=== PATIENT | male | born 1975 | race Caucasian/White ===

== ENCOUNTER → 2024-01-11 | Outpatient (CLI) | payer OTHER, SELFPAY ==
[2024-01-11 09:55] LABS: Absolute Lymphocyte Count 1.53 X10^3/uL (0.83-4.51); Absolute Neutrophil Count 3.9 X10^3/uL (2.0-7.7); Basophil# 0.04 X10^3/uL; Basophil% 0.6 % (0-1); Eosinophil# 0.38 X10^3/uL; Eosinophils% 5.7 % (0-5); Hemoglobin 14.5 g/dL (13.0-16.5); Lymphocyte # 1.53 X10^3/ul (0.83-4.51); Lymphocyte % 23.1 % (19-41); Mean Corp Hgb Conc 31.5 g/dL (32-36); Mean Corpuscular Hgb 27.5 pg (27.0-32.0); Mean Corpuscular Volume 87.1 fL (80-94); Mean Platelet Vol. 10.5 fl (6.2-12.0); Monocyte# 0.74 X10^3/uL; Monocyte% 11.2 % (0-10); NRBC Flagged by Analyzer 0 % (0-5); Neutrophil # 3.91 X10^3/uL (2.7-7.7); Neutrophil % 59.2 % (47-70); Platelet Count 314 K/mm3 (150-450); RBC Distribution Width CV 14.2 % (11.6-14.6); RBC Distribution Width SD 45.5 fl (35.1-43.9); Red Blood Count 5.28 M/mm3 (4.6-6.2); White Blood Count 6.6 K/mm3 (4.4-11.0)
[2024-01-11 10:30] LABS: ALB/GLOB Ratio 0.9 RATIO (0.9-2.4); AST(SGOT) 16 U/L (15-37); Alanine Aminotransfer ALT/SGPT 24 U/L (16-61); Albumin, Serum 3.5 g/dL (3.2-5.0); Alkaline Phosphatase 97 U/L (45-117); Anion Gap 4 (5-15); BUN 18 mg/dL (7-18); BUN/Creat Ratio 15.4 RATIO (10-20); Calcium,Total 9.2 mg/dL (8.5-10.1); Chloride 106 mmol/L (98-107); Cholesterol 133 mg/dL (200); Creatinine, Serum 1.17 mg/dL (0.70-1.30); EST Glomerular Filtration Rate 71 mL/min (>60); Est Glom Filt Rate - Afr Amer 86 mL/min (>60); Globulin 3.9 g/dL (2.2-4.2); Glucose 92 mg/dL (74-106); High Density Lipoprotein 42 mg/dL; Potassium 4.4 mmol/L (3.5-5.1); Protein, Total 7.4 g/dL (6.4-8.2); Sodium Level 138 mmol/L (136-145); Triglycerides 111 mg/dL; Very Low Density Lipoprotein 22 mg/dL (5-40)
[2024-01-11 10:49] LABS: Hemoglobin A1c 5.6 % (3.8-5.6)
== END | disposition home or self-care (01) ==
LOC: LAB 09:08
PROVIDERS: Referring Provider Registered Nurse; Visit Provider Registered Nurse
DX: Z00.00 Encounter for general adult medical examination without abnormal findings (principal); Z13.1 Encounter for screening for diabetes mellitus; G47.33 Obstructive sleep apnea (adult) (pediatric); E66.9 Obesity, unspecified; R53.83 Other fatigue
CPT/HCPCS: 36415; 80053; 80061; 83036; 85025

== ENCOUNTER 2024-04-12 06:46 | Emergency (ER) | payer OTHER, SELFPAY ==
[2024-04-12 06:47] VITALS: BP 167/87; PULSE 99; RESP 18; TEMP 37; O2SAT 96; BMI 44.4
[2024-04-12 06:54] VITALS: BP 146/77; PULSE 84; RESP 18; O2SAT 95
[2024-04-12] MEDS: Ibuprofen 600 MG Tablet PO (07:24)
== END 2024-04-12 10:02 | disposition home or self-care (01) ==
PROVIDERS: Emergency Provider Emergency Medicine; PCP Registered Nurse; Visit Provider Emergency Medicine
DX: S63.501A Unspecified sprain of right wrist, initial encounter (principal); S63.502A Unspecified sprain of left wrist, initial encounter; I10 Essential (primary) hypertension; E66.9 Obesity, unspecified; W19.XXXA Unspecified fall, initial encounter
CPT/HCPCS: 73090; 73110; 99283

== ENCOUNTER → 2025-02-11 | Outpatient (CLI) | payer OTHER, SELFPAY ==
--- OUTSIDE RECORDS SUMMARY | 2025-02-11 07:32 | XMS RPT_ITS | CCD ---
Author Organization [facility] [place] [facility] Care Team Providers Care [employer] Name Role Phone ELIZABETH BOWERS, PAU Primary Care Physician CALLY WOLF-MARIA ESTHER, ROXANN Primary Care Physician CALLY BOWERS, ROXANN Primary Care ADALBERTO Mast DO Attending Unavailable CALLY WOLF-RADIO EQUIPMENT INSTALLER, ROXANN Attending Eron SABILLON APRN-RADIO EQUIPMENT INSTALLER, KATIANA Primary Care Un available CALLY BOWERS, ROXANN Attending Eron ALAMO APRN-MARIA ESTHER, [facility] Primary Care Eron Sabillon BASEBALL INSPECTOR-C, [facility] Provider Assessment, Health Risk Attending Provider Unava ilable Assessment, Health Risk Referring Provider Unava ilable Naman Cordoba MD, Chi Attending Provider Unavailable Jacinda BASEBALL INSPECTOR, [facility] Unavailabl Rosalino Ann Attending Unavailable Adalid OLS, Naman Chi Attending Unavailable Jacinda SOTO, [facility] UnavailDat Martinez Attending Unavailable Jacinda BASEBALL INSPECTOR, Silas Referring Unavailbutch Sabillon NP, [facility] Unavailbutch Sabillon BASEBALL INSPECTOR, [facility] Unavailbutch Sabillon BASEBALL INSPECTOR, Silas Referring Unavailabl e Giovanni Muñoz Attending Unavailable Adalid OLS, Naman Chi Referring Unavailable KARY ROGERS Primary Care Unavailable Adalid OLS, Naman Chi Attending Unavailable Adalid OLS, Naman Chi Attending Unavailable Adalid OLS, Naman Chi Referring Unavailable KARY ROGERS Primary Care Unavailable Adalid OLS, Naman Chi Attending Unavailable Jacinda SOTO, [facility] Unavailabl e Adalid OLS, Naman Chi Attending Unavailable Adalid OLS, Naman Chi Referring Unavailable KARY ROGERS Primary Care Unavailable Adalid OLS, Naman Chi Attending Unavailable Adalid, Naman Chi Referring Unavailable Jacinda BASEBALL INSPECTOR, [facility] Unavailabl e Adalid OLS, Naman Chi Attending Unavailable Adalid OLS, Naman Chi Referring Unavailable Jacinda BASEBALL INSPECTOR, [facility] Unavailabl e Adalid OLS, Naman Chi Attending Unavailable Adalid OLS, Naman Chi Referring Unavailable Jacinda BASEBALL INSPECTOR, [facility] Unavailabl e Adalid OLS, Naman Chi Attending Unavailable KARY ROGERS Primary [facility] Unavailable Adalid OLS, Naman Chi Attending Unavailable Adalid, Naman Chi Referring Unavailable Jacinda BASEBALL INSPECTOR, [facility] Unavailabl e Adalid OLS, Naman Chi Attending Unavailable Adalid OLS, Naman Chi Referring Unavailable Jacinda BASEBALL INSPECTOR, [facility] Unavailabl e Adalid OLS, Naman Chi Attending Unavailable Adalid OLS, Anman Chi Referring Unavailable Jacinda BASEBALL INSPECTOR, [facility] Unavailabl e Assessment, Health Risk Referring Unavaila ble Assessment, Health Risk Attending Unavaila ble Jacinda BASEBALL INSPECTOR, [facility] Unavailabl e Allergies Allergy Classification Reported Allergen(s) Allergy Type Date of Onset Reaction(s) Facility (6 sources) Benzoyl Peroxide; Translations: [benzoyl peroxide topical] Drug Allergy Pain (finding), Red color (finding), Swelling (finding) [facility] (1 source) Seasonal allergy; Translations: [SEASONAL ALLERGIES] Propensity to adverse reactions (disorder) 6 [facility] Repository Medications Current Medications Medication Drug Class(es) Dates Sig (Normalized) Sig (Original) Centrum Men's oral tablet (6 sources) Start: 05-14-2020 take 1 tablet by mouth once daily Centrum Men's oral tablet Oral, qDay, 0 Refill(s) Start Date: 05/14/20 Status: Ordered cholecalciferol 0.125 mg oral tablet (1 source) Vitamin D Start: 04-12-2024 take 1 tablet by mouth once daily Cholecalciferol (Vitamin D3) (Vitamin D3) 125 mcg (5,000 unit) tablet Active 5000 U PO DAILY April 12, 2024 1:00am citalopram 20 mg oral tablet (6 sources) Serotonin Reuptake Inhibitor Start: 06-15-2021 End: 02-07-2023 citalopram 20 mg oral tablet Dose : 20 mg = 1 tab(s), Oral, qDay, # 90 tab(s), 3 Refill(s), Pharmacy: [id number], 169.5, cm, 02/12/22 10:20:00 EDT, Height, kg, 02/12/22 10:20:00 EDT, Dosing Weight Start Date: 02/12/22 Stop Date: 02/07/23 Status: Ordered Start: 05-14-2020 End: 05-09-2021 citalopram 40 mg oral tablet Dose : 20 mg = 0.5 tab(s), Oral, qDay, # 45 tab(s), 3 Refill(s), Pharmacy: [id number], 170.2, cm, 05/14/20 11:26:00 EST, Height, kg, 05/14/20 11:26:00 EST, Dosing Weight Start Date: 05/14/20 Stop Date: 05/09/21 Status: Ordered Multivitamin tablet (1 source) Start: 04-12-2024 Multivitamin t ablet Active 1 {tbl} PO DAILY April 12, 2024 1:00am Vitamin D3 (6 sources) Start: 05-14-2020 Vitamin D3 Dos e : 2,000 unit(s) = 1 tab(s), Oral, Daily, 0 Refill(s) Start Date: 05/14/20 Status: Ordered Problems Active Problems Problem Classification Problem Date Documented Da te Episodic/Chronic Administrative/social admission (1 source) Patient encounter status; Translations: [Encounter for pre-employment examination] 07-22-2023 Episodic Anxiety disorders (6 sources) Anxiety 05-14-2020 Chronic E Codes: Fall (1 source) Accidental fall ; Translations: [Unspecified fall, initial encounter] 04-20-2024 Episodic Esophageal disorders (6 sources) Gastroesophageal reflux disease 05-14-2020 Chronic Essential hypertension (1 source) Hypertensive disorder; Translations: [Essential (primary) hypertension] 04-20-2024 Chronic Fluid and electrolyte disorders (3 sources) Hyperkalemia 02-14-2022 Episodic Other bone disease and musculoskeletal deformities (18 sources) Segmental and somatic dysfunction 05-14-2020 Episodic Other screening for suspected conditions (not mental disorders or infectious disease) (1 source) Procedure carried out on subject; Translations: [Encounter for screening, unspecified] Episodic Residual codes; unclassified (6 sources) Obstructive sleep apnea syndrome 08-14-2020 Chronic Sprains and strains (2 sources) Injury of forearm; Translations: [Strain of unspecified muscles, fascia and tendons at forearm level, unspecified arm, initial encounter] 04-20-2024 Episodic Unclassified (5 sources) Patient encounter status 06-15-2021 Past or Other Problems Problem Classification Problem Date Documented Da te Episodic/Chronic Immunizations and screening for infectious disease (2 sources) Encounter for observation for suspected exposure to other biological agents ruled out; Translations: [Encounter for observation for suspected exposure to other biological agents ruled out] Onset: 06-06-2024 Episodic Other non-traumatic joint disorders (1 source) Pain in left wrist; Translations: [Pain in left wrist] Onset: 05-11-2024 Episodic Superficial injury; contusion (4 sources) Right wrist contusion; Translations: [Contusion of right wrist, initial encounter] Onset: 04-27-2024 04-19-2024 Episodic Results Test Name Value Interpretation Reference Range Facility COVID 19 AG RAPID (KANE Foley)on 01-24-2025 SARS-CoV-2 (COVID-19) RNA RENATO+probe Ql (Unsp spec) *Negative results from patients with symptom onset beyond five days should be treated as presumptive and confirmed by a molecular assay if clinically necessary. Negative results should not be used as the sole basis for treatment or for patient management. SARS-CoV-2 Ag Resp Ql IA.rapid *Positive results do not differentiate between SARS-CoV and SARS-CoV-2. If differentiation of the specific SARS virus is desired an additional sample and an additional order is required. SARS-CoV-2 Ag Resp Ql IA.rapid * This test has not been FDA cleared or approved; the test has been authorized by FDA under an Emergency Use Authorization (EAU) for use by laboratories certified under CLIA that meet the requirements to perform moderate, high, or waived complexity tests. SARS-CoV-2 Ag Resp Ql IA.rapid Normal Reference Range: Negative SARS-CoV-2 (COVID 19) Negative RAPID METHOD [employer] COVID19 Ag Card Normal [facility] Comment on above: Performed By: #### M 100.505 #### [facility] [place], [address] COVID-19 virus antigen assay Ordered By: Naman Cordoba on 01-24-2025 SARS-CoV-2 (COVID-19) Ag IA.rapid Ql (Resp) [facility] Absolute lymphocyte countOrd ered By: HEALTH ASSESSMENT on 01-04-2025 Lymphocytes Auto (Unsp spec) [#/Vol] 1.52 10*3/uL 0.83-4.51 [facility] Absolute neutrophil countOrd ered By: HEALTH ASSESSMENT on 01-04-2025 Neutrophils (Bld) [#/Vol] 5.6 10*3/uL 2.0-7.7 [facility] Absolute nucleated red blood cell countOrdered By: HEALTH ASSESSMENT on 01-04-2025 Nucleated RBC (Bld) [#/Vol] 0.00 10*3/uL 0-5 [facility] Anion gap in Serum or Plasma Ordered By: HEALTH ASSESSMENT on 01-04-2025 Anion gap [Moles/Vol] 12 mmol/L 5-15 [facility] BUN/creatinine ratioOrdered By: HEALTH ASSESSMENT on 01-04-2025 Urea nitrogen/Creatinine [Mass ratio] 11.8 mg/mg 10-20 [facility] Bilirubin Test strip Ql (U)O rdered By: HEALTH ASSESSMENT on 01-04-2025 Bilirubin Ql (U) Negative Negative [facility] Bilirubin directOrdered By: HEALTH ASSESSMENT on 01-04-2025 Bilirubin.direct [Mass/Vol] 0.21 mg/dL 0.00-0.30 [facility] Bilirubin, totalOrdered By: HEALTH ASSESSMENT on 01-04-2025 Bilirubin [Mass/Vol] 0.48 mg/dL 0.00-1.30 [facility] Blood band neutrophil count as percentage of total leukocytesOrdered By: HEALTH ASSESSMENT on 01-04-2025 Band form neutrophils/100 WBC (Bld) 69.1 % 47-70 [facility] CBC, Employeeon 01-04-2025 Absolute Lymph 1.52 X10 3/uL Normal 0.83-4.51 [facility] Comment on above: Performed By: #### M 100.505 #### [facility] [address] [place], [place], [id number] Absolute Neut 5.6 X10 3/uL Normal 2.0-7.7 [facility] Comment on above: Performed By: #### M [id number] #### [facility] [address] [place], [address] Basophils/100 WBC (Bld) 0.5 % Normal 0-1 [facility] Comment on above: Performed By: #### M [id number] #### [facility] [address] [place], [address] Eosinophils/100 WBC (Bld) 2.1 % Normal 0-5 [facility] Comment on above: Performed By: #### M [id number] #### [facility] [address] [place], [address] Erythrocyte distribution width (RBC) [Ratio] 14.2 % Normal 11.6-14.6 [facility] Comment on above: Performed By: #### M [id number] #### [facility] [address] [place], [address] Hematocrit (Bld) [Volume fraction] 44.4 % Normal 40-54 [facility] Comment on above: Performed By: #### M [id number] #### [facility] [address] [place], [address] Hemoglobin (Bld) [Mass/Vol] 14.6 g/dL Normal 13.0-16.5 [facility] Comment on above: Performed By: #### M [id number] #### [facility] [address] [place], [address] Lymphocytes/100 WBC (Bld) 18.6 % Low 19-41 [facility] Comment on above: Performed By: #### M [id number] #### [facility] [address] [place], [address] MCH (RBC) [Entitic mass] 28.3 pg Normal 27.0-32.0 [facility] Comment on above: Performed By: #### M [id number] #### [facility] [address] [place], [address] MCHC (RBC) [Mass/Vol] 32.9 g/dL Normal 32-36 [facility] Comment on above: Performed By: #### M 100.505 #### [facility] [address] [place], [address] MCV (RBC) [Entitic vol] 86.0 fL Normal 80-94 [facility] Comment on above: Performed By: #### M 100.505 #### [facility] [address] [place], [address] Monocytes/100 WBC (Bld) 9.3 % Normal 0-10 [facility] Comment on above: Performed By: #### M 100.505 #### [facility] [address] [place], [address] Neutrophils/100 WBC (Bld) 69.1 % Normal 47-70 [facility] Comment on above: Performed By: #### M 100.505 #### [facility] [address] [place], [address] NRBC # 0.00 10 3/uL Normal 0-5 [facility] Comment on above: Performed By: #### M 100.505 #### [facility] [address] [place], [address] Nucleated RBC (Bld) [#/Vol] 0 10*3/uL Normal 0-5 [facility] Comment on above: Performed By: #### M 100.505 #### [facility] [address] [place], [address] Platelet mean volume (Bld) [Entitic vol] 9.9 fL Normal 6.2-12.0 [facility] Comment on above: Performed By: #### M 100.505 #### [facility] [address] [place], [address] Platelets (Bld) [#/Vol] 338 10*3/uL Normal 150-450 [facility] Comment on above: Performed By: #### M 100.505 #### [facility] [address] [place], [address] RBC (Bld) [#/Vol] 5.16 10*6/uL Normal 4.6-6.2 [facility] Comment on above: Performed By: #### M 100.505 #### [facility] [address] [place], [address] RDW SD 45.1 fl High 35.1-43.9 [facility] Comment on above: Performed By: #### M 100.505 #### [facility] [address] [place], [address] WBC (Bld) [#/Vol] 8.2 10*3/uL Normal 4.4-11.0 [facility] Comment on above: Performed By: #### M 100.505 #### [facility] [address] [place], [address] Calculated very low density lipoprotein (VLDL) cholesterol measurementOrdered By: HEALTH ASSESSMENT on 01-04-2025 Calculated very low density lipoprotein (VLDL) cholesterol measurement 26 mg/dL 5-40 [facility] Carbon dioxide, total [Moles /volume] in Central venous bloodOrdered By: HEALTH ASSESSMENT on 01-04-2025 CO2 [Moles/Vol] 24.6 mmol/L 21.0-32.0 [facility] Chloride assayOrdered By: HE ALTH ASSESSMENT on 01-04-2025 Chloride [Moles/Vol] 104 mmol/L 98-108 [facility] Employee Profileon CHOL:HDL 3.43 Normal [facility] Comment on above: Performed By: #### M 100.505 #### [facility] [address] [place], [address] Cholesterol [Mass/Vol] 149 mg/dL Normal <=200 [facility] Comment on above: Result Comment: Chol esterol level, Desirable <200 mg/dL Borderline high cholesterol 200-239 mg/dL High cholesterol >=240 mg/dL Recommendations of the NCEP Adult Treatment Panel for the following risk-cutoff thresholds for the [place] population. Performed By: #### M 100.505 #### [facility] [address] [place], [address] Cholesterol in HDL [Mass/Vol] 43 mg/dL Normal [facility] Comment on above: Result Comment: Josselin onal Cholesterol Education Program (NCEP) guidelines: <40 mg/dL: Low HDL-cholesterol (major risk factor for CHD) >= 60 mg/dL: High HDL-cholesterol (negative risk factor for CHD) HDL-cholesterol is affected by a number of factors, e.g. smoking, exercise, hormones, sex and age. Performed By: #### M 100.505 #### [facility] [address] [place], [address] Cholesterol in LDL [Mass/Vol] 80 mg/dL Normal [facility] Comment on above: Result Comment: Bord dzqcca=916-852 mg/dL Higher Wezx=352 mg/dL or greater Friedwald Equation for LDL-C Performed By: #### M 100.505 #### [facility] [address] [place], [address] Cholesterol in VLDL [Mass/Vol] 26 mg/dL Normal 5-40 [facility] Comment on above: Performed By: #### M 100.505 #### [facility] [address] [place], [address] LDH 195 U/L Normal 87-241 [facility] Comment on above: Performed By: #### M 100.505 #### [facility] [address] [place], [address] Phosphate [Mass/Vol] 3.8 mg/dL Normal 2.7-4.5 [facility] Comment on above: Performed By: #### M 100.505 #### [facility] [address] [place], [place], [address] Triglyceride [Mass/Vol] 129 mg/dL Normal [facility] Comment on above: Result Comment: The drugs N-Acetylcysteine and Metamizole may falsely depress this assay. Normal range: <150 mg/dL Borderline High: 150-199 mg/dL High: 200-499 mg/dL Very High: >500 mg/dL Performed By: #### M 100.505 #### [facility] [address] [place], [place], [id number] URIC 6.5 mg/dL Normal 3.5-7.2 [facility] Comment on above: Result Comment: The drugs N-Acetylcysteine and Metamizole may falsely depress this assay. Performed By: #### M 100.505 #### [facility] [address] [place], [place], [address] Erythrocyte distribution wid th ratioOrdered By: HEALTH ASSESSMENT on 01-04-2025 Erythrocyte distribution width (RBC) [Ratio] 14.2 % 11.6-14.6 [facility] Erythrocyte distribution wid th standard deviationOrdered By: HEALTH ASSESSMENT on 01-04-2025 Erythrocyte distribution width (RBC) [Ratio] 45.1 fl High 35.1-43.9 [facility] Glomerular filtration rate ( GFR) estimation/1.73 sq m using serum, plasma, or whole bOrdered By: HEALTH ASSESSMENT on 01-04-2025 GFR/1.73 sq M.predicted among non-blacks MDRD (S/P/Bld) [Vol rate/Area] 84 mL/min/{1.73_m2} >60 [facility] Comment on above: mL/min/1.73m2 CKD-EP I Creatinine Equation (2020) Hematocrit Auto (Bld) [Volum e fraction]Ordered By: HEALTH ASSESSMENT on 01-04-2025 Hematocrit (Bld) [Volume fraction] 44.4 % 40-54 [facility] Hemoglobin measurementOrdere d By: HEALTH ASSESSMENT on 01-04-2025 Hemoglobin (Bld) [Mass/Vol] 14.6 g/dL 13.0-16.5 [facility] Ketones Test strip Ql (U)Ord ered By: HEALTH ASSESSMENT on 01-04-2025 Ketones Ql (U) Negative Negative [facility] LDL calc ser/plasOrdered By: HEALTH ASSESSMENT on 01-04-2025 Cholesterol in LDL [Mass/Vol] 80 mg/dL [facility] Comment on above: Cygxawhnke=404-818 m g/dL & Higher Kzrc=525 mg/dL or greaterFriedwald Equation for LDL-C Laboratory - Chemistry and C hemistry - challengeOrdered By: HEALTH ASSESSMENT on 01-04-2025 AST [Catalytic activity/Vol] 34 U/L <38 [facility] Lactate dehydrogenase (LDH) measurementOrdered By: HEALTH ASSESSMENT on 01-04-2025 LDH [Catalytic activity/Vol] 195 U/L 87-241 [facility] MCV (mean corpuscular volume ) determinationOrdered By: HEALTH ASSESSMENT on 01-04-2025 MCV (RBC) [Entitic vol] 86.0 fL 80-94 [facility] Mean corpuscular hemoglobin (MCH) determinationOrdered By: HEALTH ASSESSMENT on 01-04-2025 MCH (RBC) [Entitic mass] 28.3 pg 27.0-32.0 [facility] Mean corpuscular hemoglobin concentration (MCHC) determinationOrdered By: HEALTH ASSESSMENT on 01-04-2025 MCHC (RBC) [Mass/Vol] 32.9 g/dL 32-36 [facility] Mean platelet volume determi nationOrdered By: HEALTH ASSESSMENT on 01-04-2025 Platelet mean volume (Bld) [Entitic vol] 9.9 fL 6.2-12.0 [facility] Nitrite Test strip Ql (U)Ord ered By: HEALTH ASSESSMENT on 01-04-2025 Nitrite Ql (U) Negative Negative [facility] Nucleated red blood cell per centageOrdered By: HEALTH ASSESSMENT on 01-04-2025 Nucleated RBC/100 WBC (Bld) [Ratio] 0 % 0-5 [facility] Platelet countOrdered By: HE ALTH ASSESSMENT on 01-04-2025 Platelets (Bld) [#/Vol] 338 10*3/uL 150-450 [facility] Potassium measurement (mass/ volume)Ordered By: HEALTH ASSESSMENT on 01-04-2025 Potassium (Unsp spec) [Mass/Vol] 3.9 mmol/L 3.3-5.1 [facility] Protein Test strip Ql (U)Ord ered By: HEALTH ASSESSMENT on 01-04-2025 Protein Ql (U) 30 mg/dl High Negative [facility] RBC Auto (Bld) [#/Vol]Ordere d By: HEALTH ASSESSMENT on 01-04-2025 RBC (Bld) [#/Vol] 5.16 10*6/uL 4.6-6.2 [facility] Screening total cholesterol/ high density lipoprotein (HDL) cholesterol ratioOrdered By: HEALTH ASSESSMENT on 01-04-2025 Cholesterol.total/Choles terol in HDL [Mass ratio] 3.43 {ratio} [facility] Serum creatinine measurement (mass/volume)Ordered By: HEALTH ASSESSMENT on 01-04-2025 Creatinine [Mass/Vol] 1.09 mg/dL 0.70-1.20 [facility] Serum globulin measurementOr dered By: HEALTH ASSESSMENT on 01-04-2025 Globulin (S) [Mass/Vol] 3.3 g/dL 2.2-4.2 [facility] Serum glucose measurement (m ass/volume)Ordered By: HEALTH ASSESSMENT on 01-04-2025 Glucose [Mass/Vol] 97 mg/dL 70-99 [facility] Serum or plasma alanine parker otransferase (ALT) measurementOrdered By: HEALTH ASSESSMENT on 01-04-2025 ALT [Catalytic activity/Vol] 46 U/L <47 [facility] Serum or plasma albumin katy urement (mass/volume)Ordered By: HEALTH ASSESSMENT on 01-04-2025 Albumin [Mass/Vol] 4.4 g/dL 3.5-5.0 [facility] Serum or plasma albumin/glob ulin mass ratioOrdered By: HEALTH ASSESSMENT on 01-04-2025 Albumin/Globulin [Mass ratio] 1.3 {ratio} 0.9-2.4 [facility] Serum or plasma alkaline mario sphatase measurementOrdered By: HEALTH ASSESSMENT on 01-04-2025 ALP [Catalytic activity/Vol] 98 U/L 40-129 [facility] Serum or plasma calcium katy urement (mass/volume)Ordered By: HEALTH ASSESSMENT on 01-04-2025 Calcium [Mass/Vol] 9.4 mg/dL 7.6-11.0 [facility] Serum or plasma cholesterol in HDL measurement (mass/volume)Ordered By: HEALTH ASSESSMENT on 01-04-2025 Cholesterol in HDL [Mass/Vol] 43 mg/dL >40 [facility] Comment on above: National Cholesterol Education Program (NCEP) guidelines:<40 mg/dL: Low HDL-cholesterol (major risk factor for CHD)>= 60 mg/dL: High HDL-cholesterol (negative risk factor for CHD)HDL-cholesterol is affected by a number of factors, e.g. smoking, exercise, hormones, sex and age. Serum or plasma cholesterol measurement (mass/volume)Ordered By: HEALTH ASSESSMENT on 01-04-2025 Cholesterol [Mass/Vol] 149 mg/dL <201 [facility] Comment on above: Cholesterol level, D esirable <200 mg/dLBorderline high cholesterol 200-239 mg/dLHigh cholesterol >=240 mg/dLRecommendations of the NCEP Adult Treatment Panel for the following risk-cutoff thresholds for the [place] population. Serum or plasma urea nitroge n measurement (mass/volume)Ordered By: HEALTH ASSESSMENT on 01-04-2025 Urea nitrogen [Mass/Vol] 13 mg/dL 4-19 [facility] Serum or plasma uric acid me asurement (mass/volume)Ordered By: HEALTH ASSESSMENT on 01-04-2025 Urate [Mass/Vol] 6.5 mg/dL 3.5-7.2 [facility] Comment on above: The drugs N-Acetylcy steine and Metamizole may falsely depress this assay. Sodium levelOrdered By: [facility] ASS[facility]MENT on 01-04-2025 Sodium [Moles/Vol] 140 mmol/L 133-145 [facility] Total proteinOrdered By: [facility] ASSESSMENT on 01-04-2025 Protein [Mass/Vol] 7.6 g/dL 5.9-8.4 [facility] Triglycerides measurementOrd ered By: HEALTH ASSESSMENT on 01-04-2025 Triglyceride [Mass/Vol] 129 mg/dL <199 [facility] Comment on above: The drugs N-Acetylcy steine and Metamizole may falsely depress this assay. Normal range: <150 mg/dLBorderline High: 150-199 mg/dLHigh: 200-499 mg/dLVery High: >500 mg/dL Urinalysis, Employeeon 01-04 BILIRUBIN URINE Negative Normal Negative [facility] Comment on above: Order Comment: Urine , Random Performed By: #### M 100.505 #### [facility] [address] [place], [address] Clarity (U) Clear Normal Clear [facility] Comment on above: Order Comment: Urine , Random Performed By: #### M 100.505 #### [facility] [address] [place], [address] Color (U) Yellow Normal Yellow [facility] Comment on above: Order Comment: Urine , Random Performed By: #### M 100.505 #### [facility] [address] [place], [address] GLUCOSE, UR Normal Normal Normal [facility] Comment on above: Order Comment: Urine , Random Performed By: #### M 100.505 #### [facility] [address] [place], [address] KETONE UR Negative Normal Negative [facility] Comment on above: Order Comment: Urine , Random Performed By: #### M 100.505 #### [facility] [address] [place], [address] LEUK ESTERASE Negative Normal Negative [facility] Comment on above: Order Comment: Urine , Random Performed By: #### M 100.505 #### [facility] [address] [place], [address] Nitrite Ql (U) Negative Normal Negative [facility] Comment on above: Order Comment: Urine , Random Performed By: #### M 100.505 #### [facility] [address] [place], [address] OCCULT BLOOD-UR Negative Normal Negative [facility] Comment on above: Order Comment: Urine , Random Performed By: #### M 100.505 #### [facility] [address] [place], [address] pH UR 6.0 Normal 5.0 - 8.0 [facility] Comment on above: Order Comment: Urine , Random Performed By: #### M 100.505 #### [facility] [address] [place], [address] PROT DIPSTX 30 mg/dl Abnormal Negative [facility] Comment on above: Order Comment: Urine , Random Performed By: #### M 100.505 #### [facility] [address] [place], [address] SP.GR. DIPSTX 1.020 Normal 1.002-1.030 [facility] Comment on above: Order Comment: Urine , Random Performed By: #### M 100.505 #### [facility] [address] [place], [address] UROBILI Normal Normal Normal [facility] Comment on above: Order Comment: Urine , Random Performed By: #### M 100.505 #### [facility] [address] [place], [address] Urine clarityOrdered By: Jessie [facility] ASSESSMENT on 01-04-2025 Clarity (U) Clear Clear [facility] Urine color determinationOrd ered By: HEALTH ASSESSMENT on 01-04-2025 Color (U) Yellow Yellow [facility] Urine glucose detectionOrder ed By: HEALTH ASSESSMENT on 01-04-2025 Glucose Ql (U) Normal mg/dl Normal [facility] Urine leukocyte esterase det ection by dipstickOrdered By: HEALTH ASSESSMENT on 01-04-2025 Leukocyte esterase Test strip Ql (U) Negative Negative [facility] Urine pHOrdered By: HEALTH A SSESSMENT on 01-04-2025 pH (U) 6.0 [pH] 5.0 - 8.0 [facility] Urine specific gravity measu rementOrdered By: HEALTH ASSESSMENT on 01-04-2025 Specific gravity (U) [Rel density] 1.020 1.002-1.030 [facility] Urine urobilinogen measureme ntOrdered By: HEALTH ASSESSMENT on 01-04-2025 Urobilinogen Ql (U) Normal mg/dl Normal [facility] White blood cell (WBC) count Ordered By: HEALTH ASSESSMENT on 01-04-2025 WBC (Bld) [#/Vol] 8.2 10*3/uL 4.4-11.0 [facility] Office Visit Reporton [address] 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 Results POC CEPH COV,FluAB,RSV PCR CEPHEID COVID PCR Not DETECTED Last Edit by Kaley Ny MA on 08/09/24 11:33 CEPHEID FLU AB PCR NOT DETECTED FLU A B Last Edit by Kaley Ny MA on 08/09/24 11:33 CEPHEID RSV PCR NOT DETECTED Last Edit by Kaley Ny MA on 08/09/24 11:33 Assessment and Plan Assessment and Plan Orders: Orders POC Cepheid Covid, FluAB, RSV 08/09/24 08/13/24 0628 Date Giovanni PIEDRA Cosigner Signature: Date (if applicable) CC: Normal [facility] COVID 19 AG RAPID (RN COLLEC T)on 07-30-2024 SARS-CoV-2 (COVID-19) RNA RENATO+probe Ql (Unsp spec) *Negative results from patients with symptom onset beyond five days should be treated as presumptive and confirmed by a molecular assay if clinically necessary. Negative results should not be used as the sole basis for treatment or for patient management. SARS-CoV-2 Ag Resp Ql IA.rapid *Positive results do not differentiate between SARS-CoV and SARS-CoV-2. If differentiation of the specific SARS virus is desired an additional sample and an additional order is required. SARS-CoV-2 Ag Resp Ql IA.rapid * This test has not been FDA cleared or approved; the test has been authorized by FDA under an Emergency Use Authorization (EAU) for use by laboratories certified under CLIA that meet the requirements to perform moderate, high, or waived complexity tests. SARS-CoV-2 Ag Resp Ql IA.rapid Normal Reference Range: Negative SARS-CoV-2 (COVID 19) Negative RAPID METHOD BinaxNow COVID19 Ag Card Normal [facility] Comment on above: Performed By: #### M 100.505 #### [facility] [place], [address] COVID 19 AG RAPID (RN COLLE T)on 07-23-2024 SARS-CoV-2 (COVID-19) RNA RENATO+probe Ql (Unsp spec) *Negative results from patients with symptom onset beyond five days should be treated as presumptive and confirmed by a molecular assay if clinically necessary. Negative results should not be used as the sole basis for treatment or for patient management. SARS-CoV-2 Ag Resp Ql IA.rapid *Positive results do not differentiate between SARS-CoV and SARS-CoV-2. If differentiation of the specific SARS virus is desired an additional sample and an additional order is required. SARS-CoV-2 Ag Resp Ql IA.rapid * This test has not been FDA cleared or approved; the test has been authorized by FDA under an Emergency Use Authorization (EAU) for use by laboratories certified under CLIA that meet the requirements to perform moderate, high, or waived complexity tests. SARS-CoV-2 Ag Resp Ql IA.rapid Normal Reference Range: Negative SARS-CoV-2 (COVID 19) Negative RAPID METHOD [employer]axNow COVID19 Ag Card Normal [facility] Comment on above: Performed By: #### M 100.505 #### [facility] [address] [place], [address] COVID 19 AG RAPID (RN COLLEC T)on 07-18-2024 SARS-CoV-2 (COVID-19) RNA RENATO+probe Ql (Unsp spec) *Negative results from patients with symptom onset beyond five days should be treated as presumptive and confirmed by a molecular assay if clinically necessary. Negative results should not be used as the sole basis for treatment or for patient management. SARS-CoV-2 Ag Resp Ql IA.rapid *Positive results do not differentiate between SARS-CoV and SARS-CoV-2. If differentiation of the specific SARS virus is desired an additional sample and an additional order is required. SARS-CoV-2 Ag Resp Ql IA.rapid * This test has not been FDA cleared or approved; the test has been authorized by FDA under an Emergency Use Authorization (EAU) for use by laboratories certified under CLIA that meet the requirements to perform moderate, high, or waived complexity tests. SARS-CoV-2 Ag Resp Ql IA.rapid Normal Reference Range: Negative SARS-CoV-2 (COVID 19) Negative RAPID METHOD BinaxNow COVID19 Ag Card [facility] Comment on above: Performed By: #### M 100.505 #### [facility] [address] [place], [address] COVID 19 AG RAPID (RN COLLEC T)on 05-29-2024 SARS-CoV-2 (COVID-19) RNA RENATO+probe Ql (Unsp spec) SARS-CoV-2 (COVID 19) Negative RAPID METHOD BinaxNow COVID19 Ag Card [facility] Comment on above: Performed By: #### M 100.505 #### [facility] [address] [place], [address] COVID 19 AG RAPID (RN COLLEC T)on 05-14-2024 SARS-CoV-2 (COVID-19) RNA RENATO+probe Ql (Unsp spec) *Negative results from patients with symptom onset beyond five days should be treated as presumptive and confirmed by a molecular assay if clinically necessary. Negative results should not be used as the sole basis for treatment or for patient management. SARS-CoV-2 Ag Resp Ql IA.rapid *Positive results do not differentiate between SARS-CoV and SARS-CoV-2. If differentiation of the specific SARS virus is desired an additional sample and an additional order is required. SARS-CoV-2 Ag Resp Ql IA.rapid * This test has not been FDA cleared or approved; the test has been authorized by FDA under an Emergency Use Authorization (EAU) for use by laboratories certified under CLIA that meet the requirements to perform moderate, high, or waived complexity tests. SARS-CoV-2 Ag Resp Ql IA.rapid Normal Reference Range: Negative SARS-CoV-2 (COVID 19) Negative RAPID METHOD BinaxNow COVID19 Ag Card [facility] Comment on above: Performed By: #### M 100.505 #### [facility] [address] [place] [address], [address] COVID 19 AG RAPID (RN COLLEC T)on 05-07-2024 SARS-CoV-2 (COVID-19) RNA REANTO+probe Ql (Unsp spec) *Negative results from patients with symptom onset beyond five days should be treated as presumptive and confirmed by a molecular assay if clinically necessary. Negative results should not be used as the sole basis for treatment or for patient management. SARS-CoV-2 Ag Resp Ql IA.rapid *Positive results do not differentiate between SARS-CoV and SARS-CoV-2. If differentiation of the specific SARS virus is desired an additional sample and an additional order is required. SARS-CoV-2 Ag Resp Ql IA.rapid * This test has not been FDA cleared or approved; the test has been authorized by FDA under an Emergency Use Authorization (EAU) for use by laboratories certified under CLIA that meet the requirements to perform moderate, high, or waived complexity tests. SARS-CoV-2 Ag Resp Ql IA.rapid Normal Reference Range: Negative SARS-CoV-2 (COVID 19) Negative RAPID METHOD BinaxNow COVID19 Ag Card Normal [facility] Comment on above: Performed By: #### M 100.505 #### [facility] [address] [place], [address] COVID 19 AG RAPID (RN COLLEC T)on 04-26-2024 SARS-CoV-2 (COVID-19) RNA RENATO+probe Ql (Unsp spec) *Negative results from patients with symptom onset beyond five days should be treated as presumptive and confirmed by a molecular assay if clinically necessary. Negative results should not be used as the sole basis for treatment or for patient management. SARS-CoV-2 Ag Resp Ql IA.rapid *Positive results do not differentiate between SARS-CoV and SARS-CoV-2. If differentiation of the specific SARS virus is desired an additional sample and an additional order is required. SARS-CoV-2 Ag Resp Ql IA.rapid * This test has not been FDA cleared or approved; the test has been authorized by FDA under an Emergency Use Authorization (EAU) for use by laboratories certified under CLIA that meet the requirements to perform moderate, high, or waived complexity tests. SARS-CoV-2 Ag Resp Ql IA.rapid Normal Reference Range: Negative SARS-CoV-2 (COVID 19) Negative RAPID METHOD BinaxNow COVID19 Ag Card Normal [facility] Comment on above: Performed By: #### M 100.505 #### [facility] [address] [place], [place], [address] COVID 19 AG RAPID (RN COLLEC T)on 04-20-2024 SARS-CoV-2 (COVID-19) RNA RENATO+probe Ql (Unsp spec) *Negative results from patients with symptom onset beyond five days should be treated as presumptive and confirmed by a molecular assay if clinically necessary. Negative results should not be used as the sole basis for treatment or for patient management. SARS-CoV-2 Ag Resp Ql IA.rapid *Positive results do not differentiate between SARS-CoV and SARS-CoV-2. If differentiation of the specific SARS virus is desired an additional sample and an additional order is required. SARS-CoV-2 Ag Resp Ql IA.rapid * This test has not been FDA cleared or approved; the test has been authorized by FDA under an Emergency Use Authorization (EAU) for use by laboratories certified under CLIA that meet the requirements to perform moderate, high, or waived complexity tests. SARS-CoV-2 Ag Resp Ql IA.rapid Normal Reference Range: Negative SARS-CoV-2 (COVID 19) Negative RAPID METHOD BinaxNow COVID19 Ag Card Normal [facility] Comment on above: Performed By: #### M 100.505 #### [facility] [address] [place], [address] Urgent Care Visit Reporton 1 06-19-2023 Urgent Care Visit Report [facility] [address], [address] [place] [address] OFFICE VISIT Date of Service: 04/19/24 MR#: [id number] Acct: [id number] Name: RAHSAD MATOS Rep #: [id number] : 1975 Provider: DOROTHEA Ignacio Age/Sex: 48/M Location: [facility] Status: Signed Intake Vital Signs 04/12/24 06:47 04/19/24 09:16 04/19/24 09:24 Height 5 ft 7 in 5 ft 7 in 5 ft 7 in Weight: 281 lb 8 oz BMI 44.1 BP 138/88 H Blood Pressure Location Lt brachial Position Sitting Respiration 18 Pulse 76 Pulse Source Monitor Temp 98.9 F Temp Source Oral Pulse Oximetry (%) 98 Oxygen Delivery Method room air Intake Visit Reasons: ER FU WRIST/ [facility] Chief Complaint: F/U left wrist injury ER 04/12/24 Licensed Mortician Required: No Is patient in pain?: No Allergies No Known Allergies Allergy (Verified 04/19/24 09:26) Medications ???Medication ???Instructions ???Recorded ???Confirmed ???Type cholecalciferol (vitamin D3) 125 5,000 unit PO DAILY 04/12/24 04/19/24 History mcg (5,000 unit) tablet (Vitamin D3) multivitamin 1 tab PO DAILY 04/12/24 04/19/24 History Nurse's Note: ER 04/12/24 after sustaining a fall at work and injuring left forearm. Arm much less swollen now with ecchymosis resolving. Mild tenderness remains. [facility] Medical History (Updated 04/19/24 @ 10:16 by Dat PIEDRA, PA) Wrist sprain Strain of forearm Accidental fall Hypertension Surgical History Hx of colonoscopy Social History Smoking Status: Never smoker [facility] HPI Chief Complaint: F/U left wrist injury ER 04/12/24 Details: RASHAD MATOS, is a 48 M who presents to the office today for follow-up of a left wrist injury which occurred on 04/11/2024. At that date the patient fell catching himself with his wrist/hands and was initially evaluated at [facility] ED. Patient was found to have contusion of both wrists and has been on restrictions of no lifting/pushing/pul ling greater than 20 pounds since then. Patient today states that his right wrist has completely resolved however does continue to have some stiffness and soreness to the left wrist. He is requesting to be returned back to normal duties without restrictions at this time however. No numbness, tingling or loss range of motion to the wrist. No other associated symptoms or alleviating/aggrava ting factors. ROS Const Constitutional: No other (6 system ROS completed with pertinent findings in the HPI otherwise normal.) Exam Const General: cooperative and healthy appearing Skin General: no rashes or lesions noted Neuro General: patient alert Extrem General: full ROM, capillary refill normal and no joint enlargement Psych Appearance: grossly normal Mental Status: mental status grossly normal Coding Level of Care Code Off vis,new,level 3 Diagnoses Contusion of right wrist, initial encounter S60.211A Contusion of left wrist, initial encounter S60.212A Assessment and Plan Assessment and Plan (1) Contusion of right wrist, initial encounter: Status: Acute (2) Contusion of left wrist, initial encounter: Status: Acute Plan [employer] filled out releasing patient back to work today without restrictions per his request. Patient advised to continue with at home stretching and use of ibuprofen or Tylenol as well as heat for symptomatic improvement. Advised to follow-up should any worsening symptoms or new concerns. Patient verbalized understanding and agreement with all the above. 04/19/24 1017 Date Dat Kevin PA PA Cosigner Signature: Date (if applicable) CC: Normal [facility] Emergency Department Summary on 04-12-2024 Emergency Department Summary [facility] Medical Records Department [address] [place] [address] Emergency Department Summary 04/12/24 MR#: [id number] Acct: [id number] Name: RASHAD MATOS Rep #: [id number] : 1975 48 From: Rosalino Ramírez DO PCP: SHAHEEN Ibrahim Status:REG ER Location: ED HPI History of Present Illness Chief Complaint: Upper Extremity Injury Informant: patient Narrative Narrative: Patient is a 48-year-old male with no significant past medical history. 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 This caused him to lose his balance and he fell catching himself on outstretched hands. He denies striking his head or any loss of consciousness. He denies history of bleeding disorder or blood thinner use. He states he was able to get back up after the fall but noticed he had pain in bilateral wrists slightly greater on the left that also radiated up into his forearm. The pain has persisted throughout the night and with concern for injury he presents for evaluation [facility] Medical History no medical history no medical history Home Medications ???Medication ???Instructions ???Recorded ???Last Taken ???Type cholecalciferol (vitamin D3) 125 5,000 unit PO DAILY 04/12/24 Unknown History mcg (5,000 unit) tablet (Vitamin D3) multivitamin 1 tab PO DAILY 04/12/24 Unknown History Allergy/AdvReac Type Severity Reaction Status Date / Time No Known Allergies Allergy Verified 04/12/24 06:46 Surgical History (Updated 04/12/24 @ 06:52 by Cyn Ryder) Hx of colonoscopy Social History Smoking Status: Never smoker ROS ROS ED Constitutional Constitutional ED: Denies chills or fever(s) Eyes Eyes: Denies blurry vision or change in vision ENT ENT ED: Denies sore throat Cardiovascular Cardiovascular: Reports other Details: Negative syncope ; Denies chest pain Respiratory/Chest Respiratory/Chest: Denies cough or dyspnea Gastrointestinal Gastrointestinal: Denies abdominal pain, diarrhea, nausea or vomiting Musculoskeletal Musculoskeletal: Reports other Details: Bilateral wrist and forearm pain ; Denies back pain or neck pain Integumentary Denies Abrasions Neurologic Neurologic: Denies headache(s) or paresthesias Hematologic/Lymphat ic Hematologic/Lymphat ic: Denies easy bleeding or easy bruising EXAM Physical Exam Const Vital Signs: 04/12/24 06:47 Temperature 98.6 F Temperature Source Oral Pulse Rate 99 Respiratory Rate 18 Blood Pressure 167/87 H Blood Pressure Mean 113 Pulse Ox 96 Oxygen Delivery Method Room Air Positive well nourished, well developed and obese General Appearance ED: well developed Nutritional Appearance: obese HEENT HEENT Narrative: Normocephalic atraumatic Eyes PERRL and EOMs intact bilaterally Neck full ROM and supple Resp normal respiratory effort and clear to auscultation bilaterally Cardio regular rate and regular rhythm Extremity Extremity Narrative: Bilateral upper extremities are neurovascularly intact; AIN/PIN are intact and normal. Active range of motion is decreased secondary to pain Patient has mild soft tissue swelling along the radial component of the left wrist. No bony deformity or joint effusion noted. There is no obvious ligamentous laxity or tendon injury bilaterally No pain with palpation along the anatomical snuffbox bilaterally Compartments are soft and compressible going against compartment syndrome Neuro oriented x3, CN's II-XII intact bilaterally, moves all extremities and no focal motor deficits Sensorium / Orientation: alert Psych mental status grossly normal Skin no rashes or lesions noted Skin Narrative: Mild soft tissue swelling to the left wrist as documented above without abrasions or ecchymosis noted MDM MDM MDM Narrative Medical decision making narrative: Patient presented to the ER hypertensive otherwise with stable vitals. He reported a mechanical fall and therefore there is no need for cardiac or syncope workup. He did not strike his head or have any loss of consciousness so there is no need for head CT. With pain in the bilateral wrists and forearms and patient falling on outstretched hand there is concern for wrist fracture versus wrist sprain. He does not have any obvious signs of ligamentous or tendon injury and therefore there is no need for an MRI. Also his compartments are soft and compressible going against compartment syndrome. Therefore only feel need for a x-ray of the wrist and forearm bilaterally at this time. The patient's x-rays revealed no acute fracture or dislocation or joint separation. Indicating he has bilateral wrist sprain although this is slightly greatest on the left. As the left is more tender than the (more content not included)... Normal [facility] Forearm 2 Viewson 04-12-2024 Forearm 2 Views [facility] Imaging Services [address] [place], [place] [address] Forearm 2 Views MR#: [id number] Acct: [id number] Name: RASHAD MATOS Rep #: [id number] : 1975 M 48 From: Jeff Watkins MD PCP: SHAHEEN Ibrahim Status: REG ER Study: Forearm 2 Views Date of Exam: 04/12/24 Exam# [id number] Ordering Dr: Rosalino Ramírez DO [id number] STUDY: X-RAY - LEFT RADIUS AND ULNA REASON FOR EXAM: Male, 48 years old. PAIN TECHNIQUE: 2 view(s) of the forearm. COMPARISON: None. FINDINGS: There is no demonstrated soft tissue swelling. Normal visualized radius. Normal visualized ulna. RAD/Forearm 2 Views IMPRESSION: Normal x-ray examination of the radius and ulna. Electronically Signed: Jeff Watkins MD at 9:14 EST , CC: SHAHEEN Sabillon; Rosalino Ramírez DO Drilling Machine Runner: Signed Normal [facility] Forearm 2 Views [facility] Imaging Services [address] [place] [address] Forearm 2 Views MR#: [id number] Acct: [id number] Name: RASHAD MATOS Rep #: [id number] : 1975 M 48 From: Jeff Watkins MD PCP: SHAHEEN Ibrahim Status: REG ER Study: Forearm 2 Views Date of Exam: 04/12/24 Exam# [id number] Ordering Dr: Rosalino Ramírez DO [id number] STUDY: X-RAY - RIGHT RADIUS AND ULNA REASON FOR EXAM: Male, 48 years old. pain TECHNIQUE: 2 view(s) of the forearm. COMPARISON: None. FINDINGS: There is no demonstrated soft tissue swelling. Normal visualized radius. Normal visualized ulna. RAD/Forearm 2 Views IMPRESSION: Normal x-ray examination of the radius and ulna. Electronically Signed: Jeff Watkins MD at 9:14 EST , CC: SHAHEEN Sabillon; Rosalino Ramírez DO Drilling Machine Runner: Signed Normal [facility] Wrist min 3 Viewson 04-12-20 24 Wrist min 3 Views [facility] Imaging Services [address] [place] [address] Wrist min 3 Views MR#: [id number] Acct: [id number] Name: RASHAD MATOS Rep #: [id number] : 1975 M 48 From: Jeff Watkins MD PCP: SHAHEEN Ibrahim Status: REG ER Study: Wrist min 3 Views Date of Exam: 04/12/24 Exam# [id number] Ordering Dr: Rosalino Ramírez DO [id number] STUDY: X-RAY - LEFT WRIST REASON FOR EXAM: Male, 48 years old. PAIN TECHNIQUE: 3 view(s) of the wrist were obtained. COMPARISON: None. FINDINGS: Normal visualized distal radius and ulna. Normal radiocarpal articulation. Normal distal radioulnar articulation. Normal carpal bones. Normal carpal articulations. Normal carpometacarpal articulation of the thumb. Normal second through fifth carpometacarpal articulations. Normal visualized metacarpal bones. The soft tissue structures are unremarkable. RAD/Wrist min 3 Views IMPRESSION: Normal x-ray examination of the wrist. Electronically Signed: Jeff Watkins MD at 9:17 EST , CC: SEBASTIANC Katiana Sabillon; Rosalino Ramírez DO Drilling Machine Runner: Signed Normal [facility] Wrist min 3 Views [facility] Imaging Services [address] [place] [id number] Wrist min 3 Views MR#: [id number] Acct: [id number] Name: RASHAD MATOS Rep #: [id number] : 1975 M 48 From: Jeff Watkins MD PCP: SHAHEEN Ibrahim Status: REG ER Study: Wrist min 3 Views Date of Exam: 04/12/24 Exam# [id number] Ordering Dr: Rosalino Ramírez DO -[id number] STUDY: X-RAY - RIGHT WRIST REASON FOR EXAM: Male, 48 years old. pain TECHNIQUE: 3 view(s) of the wrist were obtained. COMPARISON: None. FINDINGS: Normal visualized distal radius and ulna. Normal radiocarpal articulation. Normal distal radioulnar articulation. Normal carpal bones. Normal carpal articulations. Normal carpometacarpal articulation of the thumb. Normal second through fifth carpometacarpal articulations. Normal visualized metacarpal bones. The soft tissue structures are unremarkable. RAD/Wrist min 3 Views IMPRESSION: Normal x-ray examination of the wrist. Electronically Signed: Jeff Watkins MD at 9:16 EST , CC: SHAHEEN Sabillon; Rosalino Ramírez DO Drilling Machine Runner: Signed Normal [facility] COVID 19 AG RAPID (RN COLLEC T)on 03-22-2024 SARS-CoV-2 (COVID-19) RNA RENATO+probe Ql (Unsp spec) *Negative results from patients with symptom onset beyond five days should be treated as presumptive and confirmed by a molecular assay if clinically necessary. Negative results should not be used as the sole basis for treatment or for patient management. SARS-CoV-2 Ag Resp Ql IA.rapid * This test has not been FDA cleared or approved; the test has been authorized by FDA under an Emergency Use Authorization (EAU) for use by laboratories certified under CLIA that meet the requirements to perform moderate, high, or waived complexity tests. SARS-CoV-2 Ag Resp Ql IA.rapid Normal Reference Range: Negative SARS-CoV-2 (COVID 19) Negative RAPID METHOD Quidel Kaykay Analyzer NOLBERTO Normal [facility] Comment on above: Performed By: #### M 100.505 #### [facility] [place], [address] COVID 19 AG RAPID (RN COLLEC T)on 03-16-2024 SARS-CoV-2 (COVID-19) RNA RENATO+probe Ql (Unsp spec) *Negative results from patients with symptom onset beyond five days should be treated as presumptive and confirmed by a molecular assay if clinically necessary. Negative results should not be used as the sole basis for treatment or for patient management. SARS-CoV-2 Ag Resp Ql IA.rapid *Positive results do not differentiate between SARS-CoV and SARS-CoV-2. If differentiation of the specific SARS virus is desired an additional sample and an additional order is required. SARS-CoV-2 Ag Resp Ql IA.rapid * This test has not been FDA cleared or approved; the test has been authorized by FDA under an Emergency Use Authorization (EAU) for use by laboratories certified under CLIA that meet the requirements to perform moderate, high, or waived complexity tests. SARS-CoV-2 Ag Resp Ql IA.rapid Normal Reference Range: Negative SARS-CoV-2 (COVID 19) Negative RAPID METHOD BinaxNow COVID19 Ag Card Normal [facility] Comment on above: Performed By: #### M 100.505 #### [facility] [address] [place], [place], [id number] COVID 19 AG RAPID (KANE LACKEY Og)on 03-12-2024 SARS-CoV-2 (COVID-19) RNA RENATO+probe Ql (Unsp spec) *Negative results from patients with symptom onset beyond five days should be treated as presumptive and confirmed by a molecular assay if clinically necessary. Negative results should not be used as the sole basis for treatment or for patient management. SARS-CoV-2 Ag Resp Ql IA.rapid *Positive results do not differentiate between SARS-CoV and SARS-CoV-2. If differentiation of the specific SARS virus is desired an additional sample and an additional order is required. SARS-CoV-2 Ag Resp Ql IA.rapid * This test has not been FDA cleared or approved; the test has been authorized by FDA under an Emergency Use Authorization (EAU) for use by laboratories certified under CLIA that meet the requirements to perform moderate, high, or waived complexity tests. SARS-CoV-2 Ag Resp Ql IA.rapid Normal Reference Range: Negative SARS-CoV-2 (COVID 19) Negative RAPID METHOD BinaxNow COVID19 Ag Card Normal [facility] Comment on above: Performed By: #### M 100.505 #### [facility] [address] [place], [place], [id number] COVID 19 AG RAPID (RN COLLEC T)on 03-05-2024 SARS-CoV-2 (COVID-19) RNA RENATO+probe Ql (Unsp spec) *Negative results from patients with symptom onset beyond five days should be treated as presumptive and confirmed by a molecular assay if clinically necessary. Negative results should not be used as the sole basis for treatment or for patient management. SARS-CoV-2 Ag Resp Ql IA.rapid *Positive results do not differentiate between SARS-CoV and SARS-CoV-2. If differentiation of the specific SARS virus is desired an additional sample and an additional order is required. SARS-CoV-2 Ag Resp Ql IA.rapid * This test has not been FDA cleared or approved; the test has been authorized by FDA under an Emergency Use Authorization (EAU) for use by laboratories certified under CLIA that meet the requirements to perform moderate, high, or waived complexity tests. SARS-CoV-2 Ag Resp Ql IA.rapid Normal Reference Range: Negative SARS-CoV-2 (COVID 19) Negative RAPID METHOD BinaxNow COVID19 Ag Card Normal [facility] Comment on above: Performed By: #### M 100.505 #### [facility] [place], [address] CNOVon 06-30-2023 CNOV Office Visit (UCTR) ---- RASHAD MATOS ([id number]) 1975 M Date Time Provider Department 06/30/23 9:30 AM LINNEA VAZQUEZ [facility] During your visit today, we recorded the following information about you: Temperature Pulse Respiration Blood pressure 98 degrees 80/minute 18/minute 145/87 Weight 131.5 kg Linnea Vazquez APRN.CNP 06/30/2023 9:54 AM Signed Subjective HPI HPI Rashad Matos is a 48 year old male who presents today for CC of cough, sinus pressure, ear pressure. This started over 1 week ago. Has tried otc medication for relief. Symptoms are worsened by nothing. Risk factors sick exposures at work. Nonsmoker. Gets sinus infections few times per year. .Patient presents with: Sinus Problem: Sinus pain and pressure, cough x1 week PAST MEDICAL HISTORY Diagnosis Date Depression GERD (gastroesophageal reflux disease) PAST SURGICAL HISTORY Procedure Laterality Date PAST SURGICAL HISTORY OF closed reduction left arm ALLERGIES Benzoyl Peroxide and Seasonal Allergies MEDICATIONS cholecalciferol (VITAMIN D-3) 5,000 unit tab Take 5,000 Units by mouth once daily. citalopram (CELEXA) 40 mg tablet Take 30 mg by mouth once daily. multivitamin tablet Take 1 tablet by mouth once daily. amoxicillin-clavula david potassium (AUGMENTIN) 875-125 mg per tablet Take 1 tablet by mouth two times a day for 7 days. predniSONE (DELTASONE) 20 mg tablet Take 2 tablets by mouth once daily for 5 days. benzonatate (TESSALON PERLE) 100 mg capsule Take 2 capsules by mouth three times a day as needed. famotidine (PEPCID ORAL) Take by mouth. guaiFENesin (MUCINEX) 600 mg 12 hr tablet Take 2 tablets by mouth twice daily. benzonatate (TESSALON PERLES) 100 mg capsule Take 1 capsule by mouth three times daily as needed. OMEPRAZOLE (PRILOSEC ORAL) Take 20 mg by mouth once daily. CITALOPRAM HYDROBROMIDE (CELEXA ORAL) Take 40 mg by mouth once daily. (Patient not taking: Reported on 06/30/2023) FLUTICASONE PROPIONATE (FLONASE NASAL) Use in the nose. FAMILY HISTORY Problem Relation Age of Onset Cancer Father bladder Hypertension Father Social History Tobacco Use Smoking status: Never Smokeless tobacco: Never Substance Use Topics Alcohol use: Not Currently Drug use: Never Review of Systems Constitutional: Negative for fever. HENT: Positive for congestion, ear pain, sinus pain and sore throat. Negative for ear discharge and nosebleeds. Respiratory: Positive for cough. Negative for shortness of breath and wheezing. Cardiovascular: Negative for chest pain. Musculoskeletal: Negative for neck pain. Skin: Negative for itching and rash. Objective Physical Exam Constitutional: General: He is not in acute distress. Appearance: He is not toxic-appearing or diaphoretic. HENT: Head: Normocephalic and atraumatic. Right Ear: Hearing, tympanic membrane, ear canal and external ear normal. Left Ear: Hearing, tympanic membrane, ear canal and external ear normal. Nose: Right Sinus: Frontal sinus tenderness present. Left Sinus: Frontal sinus tenderness present. Mouth/Throat: Pharynx: Uvula midline. No pharyngeal swelling, oropharyngeal exudate, posterior oropharyngeal erythema or uvula swelling. Eyes: General: Lids are normal. No scleral icterus. Right eye: No discharge. Left eye: No discharge. Conjunctiva/sclera: Conjunctivae normal. Pupils: Pupils are equal, round, and reactive to light. Neck: Trachea: Trachea normal. Cardiovascular: Rate and Rhythm: Normal rate and regular rhythm. Heart sounds: Normal heart sounds. Pulmonary: Effort: Pulmonary effort is normal. Breath sounds: Normal breath sounds. Musculoskeletal: Cervical back: Normal range of motion and neck supple. Lymphadenopathy: Cervical: No cervical adenopathy. Right cervical: No superficial cervical adenopathy. Left cervical: No superficial cervical adenopathy. Skin: Findings: No rash. Neurological: Mental Status: He is alert and oriented to person, place, and time. ASSESSMENT/PLAN: 1. Sinobronchitis - ICD9: 473.9, 490, ICD10: J32.9, J40 - Will begin treatment with as per antibiotic as written, see orders - Supportive care with plenty of fluids, rest, and analgesia prn. - Follow up in 3-5 days if symptoms persist or worsen. 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 Normal [facility] .GFRon 06-17-2023 GFR Non- 69 ml/min/1.73sqm Normal [facility] ([place]) Comment on above: Result Comment: GFR Population mean for , Non- Americans Ages 20-29 = 116 mL/min/1.73 sq.m. Ages 30-39 = 107 mL/min/1.73 sq.m. Ages 40-49 = 99 mL/min/1.73 sq.m. Ages 50-59 = 93 mL/min/1.73 sq.m. Ages 60-69 = 85 mL/min/1.73 sq.m. Ages 70+ = 75 mL/min/1.73 sq.m. Chronic Kidney Disease: Less than 60 mL/min/1.73 square meters End Stage Renal Disease: Less than 15 mL/min/1.73 square meters Performed By: #### M REEMA, ANEU, ADIFF, CBC #### Feng [address] [address] GFR 84 ml/min/1.73sqm Normal [facility] ([place]) Comment on above: Result Comment: GFR Population mean for , Non- Americans Ages 20-29 = 116 mL/min/1.73 sq.m. Ages 30-39 = 107 mL/min/1.73 sq.m. Ages 40-49 = 99 mL/min/1.73 sq.m. Ages 50-59 = 93 mL/min/1.73 sq.m. Ages 60-69 = 85 mL/min/1.73 sq.m. Ages 70+ = 75 mL/min/1.73 sq.m. Chronic Kidney Disease: Less than 60 mL/min/1.73 square meters End Stage Renal Disease: Less than 15 mL/min/1.73 square meters Performed By: #### M REEMA, ANEU, ADIFF, CBC #### Feng [address] [address] [facility] Albumin Level 3.6 G/dL Normal 3.5-5.0 [facility] ([place]) Comment on above: Performed By: #### M DW, ANEU, ADIFF, CBC #### Feng [address] [address] Albumin/Globulin [Mass ratio] 1.0 {ratio} Low 1.1-2.5 [facility] ([place]) Comment on above: Performed By: #### M REEMA ANEU, ADIFF, CBC #### [address] [address] ALP [Catalytic activity/Vol] 101 U/L Normal 40-135 [facility] ([place]) Comment on above: Performed By: #### M REEMA, ANEU, ADIFF, CBC #### [address] [address] ALT [Catalytic activity/Vol] 28 U/L Normal 16-63 [facility] ([place]) Comment on above: Performed By: #### M REEMA, SAMIR, ADIFF, CBC #### [address] [address] AST [Catalytic activity/Vol] 15 U/L Normal 10-40 [facility] ([place]) Comment on above: Performed By: #### M REEMA, SAMIR, ADIFF, CBC #### [address] [address] Bili Total 0.3 mg/dL Normal 0.2-1.0 [facility] ([place]) Comment on above: Result Comment: Use of this assay is not recommended for patients undergoing treatment with eltrombopag due to the potential for falsely elevated results. Performed By: #### M SAMIR BENAVIDEZ, ADIFF, CBC #### [address] [address] BUN/Creatinine Ratio 16 ratio Normal 7-27 [facility] ([place]) Comment on above: Performed By: #### M REEMA ANEU, ADIFF, CBC #### [address] [address] Calcium [Mass/Vol] 8.5 mg/dL Normal 8.4-10.2 [facility] ([place]) Comment on above: Performed By: #### M REEMA, ANEU, ADIFF, CBC #### [address] [address] Chloride [Moles/Vol] 105 mmol/L Normal 98-107 [facility] ([place]) Comment on above: Performed By: #### M REEMA, ANEU, ADIFF, CBC #### [address] [address] CO2 [Moles/Vol] 28 mmol/L Normal 22-29 [facility] ([place]) Comment on above: Performed By: #### M REEMA, ANEU, ADIFF, CBC #### [address] [address] Creatinine [Mass/Vol] 1.14 mg/dL Normal 0.70-1.30 [facility] ([place]) Comment on above: Performed By: #### M REEMA, ANEU, ADIFF, CBC #### [address] [address] Electrolyte Balance 10.0 mEq/L Normal 4.0-15.0 [facility] ([place]) Comment on above: Performed By: #### Vianey BENAVIDEZ, ANEU, ADIFF, CBC #### [address] [address] Globulin 3.5 G/dL Normal [facility] ([place] Comment on above: Performed By: #### M REEMA, ANEU, ADIFF, CBC #### [address] [address] Glucose [Mass/Vol] 92 mg/dL Normal 70-105 [facility] ([place]) Comment on above: Performed By: #### M REEMA, ANEU, ADIFF, CBC #### [address] [address] Potassium [Moles/Vol] 5.0 mmol/L Normal 3.5-5.1 [facility] ([place]) Comment on above: Performed By: #### M REEMA, ANEU, ADIFF, CBC #### [address] [address] Sodium [Moles/Vol] 143 mmol/L Normal 136-145 [facility] ([place]) Comment on above: Performed By: #### M REEMA, ANEU, ADIFF, CBC #### [address] [address] Total Protein 7.1 G/dL Normal 6.4-8.2 [facility] ([place]) Comment on above: Performed By: #### M SAMIR BENAVIDEZ ADIFF, CBC #### Feng [address] [address] Urea nitrogen [Mass/Vol] 18 mg/dL Normal 7-18 [facility] ([place]) Comment on above: Performed By: #### M SAMIR BENAVIDEZ ADIFF, CBC #### Feng [address] [address] VIDHon 06-17-2023 Vit. D 25-Hydroxy 39.1 ng/mL Normal [facility] ([place]) Comment on above: Result Comment: Inte rpretive Values Based on Total 25(OH) Vitamin D: Deficient <20 ng/mL Insufficient 20 - <30 ng/mL Sufficient 30-100 ng/mL Performed By: #### M SAMIR BENAVIDEZ ADIFF, CBC #### [address] [address] .GFRon 11-26-2022 GFR 83 ml/min/1.73sqm Normal [facility] ([place]) Comment on above: Result Comment: GFR Population mean for , Non- Americans Ages 20-29 = 116 mL/min/1.73 sq.m. Ages 30-39 = 107 mL/min/1.73 sq.m. Ages 40-49 = 99 mL/min/1.73 sq.m. Ages 50-59 = 93 mL/min/1.73 sq.m. Ages 60-69 = 85 mL/min/1.73 sq.m. Ages 70+ = 75 mL/min/1.73 sq.m. Chronic Kidney Disease: Less than 60 mL/min/1.73 square meters End Stage Renal Disease: Less than 15 mL/min/1.73 square meters Performed By: #### V IDH, LIPID, GFR, CMP, TSH #### [address] [address] GFR Non- 68 ml/min/1.73sqm Normal [facility] ([place]) Comment on above: Result Comment: GFR Population mean for , Non- Americans Ages 20-29 = 116 mL/min/1.73 sq.m. Ages 30-39 = 107 mL/min/1.73 sq.m. Ages 40-49 = 99 mL/min/1.73 sq.m. Ages 50-59 = 93 mL/min/1.73 sq.m. Ages 60-69 = 85 mL/min/1.73 sq.m. Ages 70+ = 75 mL/min/1.73 sq.m. Chronic Kidney Disease: Less than 60 mL/min/1.73 square meters End Stage Renal Disease: Less than 15 mL/min/1.73 square meters Performed By: #### V IDH, LIPID, GFR, CMP, TSH #### [address] [address] CMPon 11-26-2022 Albumin Level 3.9 G/dL Normal 3.5-5.0 [facility] ([place]) Comment on above: Performed By: #### V IDH, LIPID, GFR, CMP, TSH #### [address] [address] Albumin/Globulin [Mass ratio] 1.2 {ratio} Normal 1.1-2.5 [facility] ([place]) Comment on above: Performed By: #### V IDH, LIPID, GFR, CMP, TSH #### [address] [address] ALP [Catalytic activity/Vol] 91 U/L Normal 40-135 [facility] ([place]) Comment on above: Performed By: #### V IDH, LIPID, GFR, CMP, TSH #### [address] [address] ALT [Catalytic activity/Vol] 25 U/L Normal 16-63 [facility] ([place]) Comment on above: Performed By: #### V IDH, LIPID, GFR, CMP, TSH #### [address] [address] AST [Catalytic activity/Vol] 15 U/L Normal 10-40 [facility] ([place]) Comment on above: Performed By: #### V IDH, LIPID, GFR, CMP, TSH #### [address] [address] Bili Total 0.3 mg/dL Normal 0.2-1.0 [facility] ([place]) Comment on above: Result Comment: Use of this assay is not recommended for patients undergoing treatment with eltrombopag due to the potential for falsely elevated results. Performed By: #### V IDH, LIPID, GFR, CMP, TSH #### [address] [address] BUN/Creatinine Ratio 12 ratio Normal 7-27 [facility] ([place]) Comment on above: Performed By: #### V IDH, LIPID, GFR, CMP, TSH #### [address] [address] Calcium [Mass/Vol] 8.9 mg/dL Normal 8.4-10.2 [facility] ([place]) Comment on above: Performed By: #### V IDH, LIPID, GFR, CMP, TSH #### [address] [address] Chloride [Moles/Vol] 105 mmol/L Normal 98-107 [facility] ([place]) Comment on above: Performed By: #### V IDH, LIPID, GFR, CMP, TSH #### [address] [address] CO2 [Moles/Vol] 30 mmol/L High 22-29 [facility] ([place]) Comment on above: Performed By: #### V IDH, LIPID, GFR, CMP, TSH #### [address] [address] Creatinine [Mass/Vol] 1.16 mg/dL Normal 0.70-1.30 [facility] ([place]) Comment on above: Performed By: #### V IDH, LIPID, GFR, CMP, TSH #### [address] [address] Electrolyte Balance 7.0 mEq/L Normal 4.0-15.0 [facility] ([place]) Comment on above: Performed By: #### V IDH, LIPID, GFR, CMP, TSH #### [address] [address] Globulin 3.2 G/dL Normal [facility] ([place]) Comment on above: Performed By: #### V IDH, LIPID, GFR, CMP, TSH #### [address] [address] Glucose [Mass/Vol] 92 mg/dL Normal 70-105 [facility] ([place]) Comment on above: Performed By: #### V IDH, LIPID, GFR, CMP, TSH #### [address] [address] Potassium [Moles/Vol] 4.9 mmol/L Normal 3.5-5.1 [facility] ([place]) Comment on above: Performed By: #### V IDH, LIPID, GFR, CMP, TSH #### [address] [address] Sodium [Moles/Vol] 142 mmol/L Normal 136-145 [facility] ([place]) Comment on above: Performed By: #### V IDH, LIPID, GFR, CMP, TSH #### [address] [address] Total Protein 7.1 G/dL Normal 6.4-8.2 [facility] ([place]) Comment on above: Performed By: #### V IDH, LIPID, GFR, CMP, TSH #### [address] [address] Urea nitrogen [Mass/Vol] 14 mg/dL Normal 7-18 [facility] ([place]) Comment on above: Performed By: #### V IDH, LIPID, GFR, CMP, TSH #### [address] [address] LABORATORYOrdered By: SYSTEM SYSTEM on 11-26-2022 25-hydroxyvitamin D3 [Mass/Vol] 29.3 ng/mL Invalid Interpretation Code AO ADM SS Albumin BCP dye [Mass/Vol] 3.9 G/dL Invalid Interpretation Code 3.5 - 5.0 G/dL AO ADM SS Albumin/Globulin [Mass ratio] 1.2 {ratio} Invalid Interpretation Code 1.1 - 2.5 ratio AO ADM SS ALP [Catalytic activity/Vol] 91 U/L Invalid Interpretation Code 40 - 135 U/L AO ADM SS ALT With P-5'-P [Catalytic activity/Vol] 25 U/L Invalid Interpretation Code 16 - 63 U/L AO ADM SS AST With P-5'-P [Catalytic activity/Vol] 15 U/L Invalid Interpretation Code 10 - 40 U/L AO ADM SS Bilirubin [Mass/Vol] 0.3 mg/dL Invalid Interpretation Code 0.2 - 1.0 mg/dL AO ADM SS Calcium [Mass/Vol] 8.9 mg/dL Invalid Interpretation Code 8.4 - 10.2 mg/dL AO ADM SS Chloride [Moles/Vol] 105 mmol/L Invalid Interpretation Code 98 - 107 mmol/L AO ADM SS CO2 [Moles/Vol] 30 mmol/L Invalid Interpretation Code 22 - 29 mmol/L AO ADM SS Creatinine [Mass/Vol] 1.16 mg/dL Invalid Interpretation Code 0.70 - 1.30 mg/dL AO ADM SS Electrolyte Balance 7.0 mEq/L Invalid Interpretation Code 4.0 - 15.0 mEq/L AO ADM SS GFR/1.73 sq M.predicted among blacks MDRD (S/P/Bld) [Vol rate/Area] 83 ml/min/1.73sqm Invalid Interpretation Code AO Chemistry S GFR/1.73 sq M.predicted among non-blacks MDRD (S/P/Bld) [Vol rate/Area] 68 ml/min/1.73sqm Invalid Interpretation Code AO Chemistry S Globulin 3.2 G/dL Invalid Interpretation Code AO ADM SS Glucose [Mass/Vol] 92 mg/dL Invalid Interpretation Code 70 - 105 mg/dL AO ADM SS Potassium [Moles/Vol] 4.9 mmol/L Invalid Interpretation Code 3.5 - 5.1 mmol/L AO ADM SS Protein [Mass/Vol] 7.1 G/dL Invalid Interpretation Code 6.4 - 8.2 G/dL AO ADM SS Sodium [Moles/Vol] 142 mmol/L Invalid Interpretation Code 136 - 145 mmol/L AO ADM SS TSH Qn 1.72 m[IU]/L Invalid Interpretation Code 0.36 - 3.74 mcIU/mL AO ADM SS Urea nitrogen [Mass/Vol] 14 mg/dL Invalid Interpretation Code 7 - 18 mg/dL AO ADM SS Urea nitrogen/Creatinine [Mass ratio] 12 ratio Invalid Interpretation Code 7 - 27 ratio AO ADM SS LABORATORYOrdered By: Barrett Dasilva on 11-26-2022 Cholesterol [Mass/Vol] 126 mg/dL Invalid Interpretation Code 0 - 200 mg/dL AO ADM SS Cholesterol in HDL [Mass/Vol] 49 mg/dL Invalid Interpretation Code 40 - 60 mg/dL AO ADM SS Cholesterol in LDL [Mass/Vol] 61 mg/dL Invalid Interpretation Code 0 - 130 mg/dL AO ADM SS Triglyceride [Mass/Vol] 80 mg/dL Invalid Interpretation Code 0 - 150 mg/dL AO ADM SS LIPIDon 11-26-2022 Cholesterol [Mass/Vol] 126 mg/dL Normal 0-200 [facility] ([place]) Comment on above: Result Comment: Chol esterol Reference Interval: Less than 200 Desirable 200-239 Borderline high risk 240 and above High risk Performed By: #### V IDH, LIPID, GFR, CMP, TSH #### [address] [address] Cholesterol in HDL [Mass/Vol] 49 mg/dL Normal 40-60 [facility] ([place]) Comment on above: Performed By: #### V IDH, LIPID, GFR, CMP, TSH #### [address] [address] Cholesterol in LDL [Mass/Vol] 61 mg/dL Normal 0-130 [facility] ([place]) Comment on above: Performed By: #### V IDH, LIPID, GFR, CMP, TSH #### [address] [address] Triglyceride [Mass/Vol] 80 mg/dL Normal 0-150 A [facility] ([place]) Comment on above: Result Comment: Trig lyceride Reference Interval: Less than 150 Normal 150-199 Borderline high risk 200-499 High risk 500 or higher Very high risk Performed By: #### V IDH, LIPID, GFR, CMP, TSH #### [address] [address] TSHon 11-26-2022 TSH Qn 1.72 m[IU]/L Normal 0.36-3.74 [facility] ([place]) Comment on above: Performed By: #### V IDH, LIPID, GFR, CMP, TSH #### [address] [address] VIDHon 11-26-2022 Vit. D 25-Hydroxy 29.3 ng/mL Normal [facility] ([place]) Comment on above: Result Comment: Inte rpretive Values Based on Total 25(OH) Vitamin D: Deficient <20 ng/mL Insufficient 20 - <30 ng/mL Sufficient 30-100 ng/mL Performed By: #### V IDH, LIPID, GFR, CMP, TSH #### [address] [address] .Auto Diffon 07-24-2022 Basophil, Absolute 0.0 10 3/mcL Normal 0.0-0.2 [facility] ([place]) Comment on above: Performed By: #### Vianey BENAVIDEZ, ANEU, ADIFF, CBC #### [address] [address] Basophils/100 WBC (Bld) 0.5 % Normal 0.0-2.5 A [facility] ([place]) Comment on above: Performed By: #### Vianey BENAVIDEZ, ANEU, ADIFF, CBC #### [address] [address] Eosinophil, Absolute 0.1 10 3/mcL Normal 0.0-0.4 [facility] ([place]) Comment on above: Performed By: #### Vianey BENAVIDEZ, ANEU, ADIFF, CBC #### [address] [address] Eosinophils/100 WBC (Bld) 2.0 % Normal 0.0-7.0 [facility] ([place]) Comment on above: Performed By: #### M REEMA, ANEU, ADIFF, CBC #### [address] [address] Lymphocyte, Absolute 1.3 10 3/mcL Normal 0.8-3.9 [facility] ([place]) Comment on above: Performed By: #### M REEMA, ANEU, ADIFF, CBC #### [address] [address] Lymphocytes/100 WBC (Bld) 22.5 % Normal 10.0-50.0 [facility] ([place]) Comment on above: Performed By: #### M REEMA, ANEU, ADIFF, CBC #### [address] [address] Monocyte, Absolute 0.6 10 3/mcL Normal 0.2-1.0 [facility] ([place]) Comment on above: Performed By: #### M REEMA, ANEU, ADIFF, CBC #### [address] [address] Monocytes/100 WBC (Bld) 10.0 % Normal 1.7-13.0 A [facility] ([place]) Comment on above: Performed By: #### M REEMA, ANEU, ADIFF, CBC #### [address] [address] Neutrophils/100 WBC (Bld) 65.0 % Normal 37.0-80.0 [facility] ([place]) Comment on above: Performed By: #### M REEMA, ANEU, ADIFF, CBC #### [address] [address] .MDWon 07-24-2022 Monocyte Distribution Width 15.92 Normal 0.00-20.00 [facility] ([place]) Comment on above: Result Comment: For ED adult patients suspected of sepsis, MDW<=20.0 does not rule out sepsis or risk of sepsis Performed By: #### M REEMA, ANEU, ADIFF, CBC #### [address] [address] .NEUABSon 07-24-2022 Neutrophil, Absolute 3.9 10 3/mcL Normal 2.9-6.2 [facility] ([place]) Comment on above: Performed By: #### M DW, ANEU, ADIFF, CBC #### [address] [address] CBCon 07-24-2022 Erythrocyte distribution width (RBC) [Ratio] 14.4 % Normal 11.5-14.5 [facility] ([place]) Comment on above: Performed By: #### M DW, ANEU, ADIFF, CBC #### [address] [address] Hematocrit (Bld) [Volume fraction] 43.2 % Normal 42.0-52.0 [facility] ([place]) Comment on above: Performed By: #### M REEMA ANEU, ADIFF, CBC #### [address] [address] Hgb 14.3 G/dL Normal 14.0-18.0 [facility] ([place]) Comment on above: Performed By: #### M REEMA, ANEU, ADIFF, CBC #### [address] [address] MCH (RBC) [Entitic mass] 28.3 pg Normal 27.0-31.2 [facility] ([place]) Comment on above: Performed By: #### M REEMA ANEU, ADIFF, CBC #### [address] [address] MCHC 33.2 G/dL Normal 31.8-35.4 [facility] ([place]) Comment on above: Performed By: #### M REEMA, ANEU, ADIFF, CBC #### [address] [address] MCV (RBC) [Entitic vol] 85.2 fL Normal 80.0-94.0 A [facility] ([place]) Comment on above: Performed By: #### M REEMA, ANEU, ADIFF, CBC #### [address] [address] Platelet 298 10 3/mcL Normal 130-400 [facility] ([place]) Comment on above: Performed By: #### M REEMA, ANEU, ADIFF, CBC #### [address] [address] Platelet mean volume (Bld) [Entitic vol] 8.1 fL Normal 7.4-10.4 [facility] ([place]) Comment on above: Performed By: #### M REEMA, ANEU, ADIFF, CBC #### [address] [address] RBC 5.06 10 6/mcL Normal 4.04-6.13 [facility] ([place]) Comment on above: Performed By: #### M DW, ANEU, ADIFF, CBC #### [address] [address] WBC 5.9 10 3/mcL Normal 4.6-10.8 [facility] ([place]) Comment on above: Performed By: #### M DW, ANEU, ADIFF, CBC #### [id number] [place], [place] [address] LABORATORYOrdered By: Shae Diaz on 07-24-2022 Basophil, Absolute 0.0 103/mcL Invalid Interpretation Code 0.0 - 0.2 10^3/mcL AO Workflow SS Basophils/100 WBC (Bld) 0.5 % Invalid Interpretation Code 0.0 - 2.5 % AO Workflow SS Eosinophil, Absolute 0.1 103/mcL Invalid Interpretation Code 0.0 - 0.4 10^3/mcL AO Workflow SS Eosinophils/100 WBC (Bld) 2.0 % Invalid Interpretation Code 0.0 - 7.0 % AO Workflow SS Erythrocyte distribution width (RBC) [Ratio] 14.4 % Invalid Interpretation Code 11.5 - 14.5 % AO Workflow SS Hematocrit (Bld) [Volume fraction] 43.2 % Invalid Interpretation Code 42.0 - 52.0 % AO Workflow SS Hemoglobin (Bld) [Mass/Vol] 14.3 G/dL Invalid Interpretation Code 14.0 - 18.0 G/dL AO Workflow SS Lymphocyte, Absolute 1.3 103/mcL Invalid Interpretation Code 0.8 - 3.9 10^3/mcL AO Workflow SS Lymphocytes/100 WBC (Bld) 22.5 % Invalid Interpretation Code 10.0 - 50.0 % AO Workflow SS MCH (RBC) [Entitic mass] 28.3 pg Invalid Interpretation Code 27.0 - 31.2 pg AO Workflow SS MCHC 33.2 G/dL Invalid Interpretation Code 31.8 - 35.4 G/dL AO Workflow SS MCV (RBC) [Entitic vol] 85.2 fL Invalid Interpretation Code 80.0 - 94.0 fL AO Workflow SS Monocyte distribution width Auto (Bld) [Entitic vol] 15.92 Invalid Interpretation Code 0.00 - 20.00 AO Workflow SS Comment on above: Result Comment: For ED adult patients suspected of sepsis, MDW<=20.0 does not rule out sepsis or risk of sepsis Monocyte, Absolute 0.6 103/mcL Invalid Interpretation Code 0.2 - 1.0 10^3/mcL AO Workflow SS Monocytes/100 WBC (Bld) 10.0 % Invalid Interpretation Code 1.7 - 13.0 % AO Workflow SS Neutrophil, Absolute 3.9 103/mcL Invalid Interpretation Code 2.9 - 6.2 10^3/mcL AO Workflow SS Neutrophils/100 WBC (Bld) 65.0 % Invalid Interpretation Code 37.0 - 80.0 % AO Workflow SS Platelet mean volume (Bld) [Entitic vol] 8.1 fL Invalid Interpretation Code 7.4 - 10.4 fL AO Workflow SS Platelets (Bld) [#/Vol] 298 103/mcL Invalid Interpretation Code 130 - 400 10^3/mcL AO Workflow SS RBC (Bld) [#/Vol] 5.06 106/mcL Invalid Interpretation Code 4.04 - 6.13 10^6/mcL AO Workflow SS WBC (Bld) [#/Vol] 5.9 103/mcL Invalid Interpretation Code 4.6 - 10.8 10^3/mcL AO Workflow SS XR ABDOMEN 2 VIEWS W/ DECUB/ ERECTon 07-24-2022 XR ABDOMEN 2 VIEWS W/ DECUB/ERECT ORIGINAL EXAMINATION: THREE XRAY VIEWS OF THE ABDOMEN 07/24/2022 7:46 am COMPARISON: None. HISTORY: ORDERING SYSTEM PROVIDED HISTORY: Reason for Exam: abdominal pain FINDINGS: Gas is scattered through the small and large intestine. No dilated loops of intestine are present. There is no free intraperitoneal air other abnormal gas collection. No pathologic calcifications are detected. There is no evidence of organomegaly. The skeletal structures are unremarkable. IMPRESSION: No sign of acute abdominal process. Interpreted by: Mack Perez MD Preliminary Report By: Mack Perez MD Electronically signed By Mack Perez MD Dictated Date: 07/24/2022 7:48:36 AM Prelim Date: 07/24/2022 7:49:41 AM Sign Date: 07/24/2022 7:49:41 AM Ordering Provider: ADALBERTO MUSTAFA [facility] ([place]) LABORATORYOrdered By: Obey Patel on 02-18-2022 Potassium [Moles/Vol] 4.7 mmol/L Invalid Interpretation Code 3.5 - 5.1 mmol/L AO ADM SS LABORATORYOrdered By: iVrginia Mishra on 02-05-2022 Potassium [Moles/Vol] 5.3 mmol/L Invalid Interpretation Code 3.5 - 5.1 mmol/L AO ADM SS LABORATORYOrdered By: [employer] on 01-29-2022 25-hydroxyvitamin D3 [Mass/Vol] 40.9 ng/mL Invalid Interpretation Code AH ADM SS GFR 87 ml/min/1.73sqm Invalid Interpretation Code AO Chemistry S GFR Non- 72 ml/min/1.73sqm Inval id Interpretation Code AO Chemistry S LABORATORYOrdered By: Barrett Dasilva on 01-29-2022 Albumin BCP dye [Mass/Vol] 3.6 G/dL Invalid Interpretation Code 3.5 - 5.0 G/dL AO ADM SS Albumin/Globulin [Mass ratio] 1.2 {ratio} Invalid Interpretation Code 1.1 - 2.5 ratio AO ADM SS ALP [Catalytic activity/Vol] 96 U/L Invalid Interpretation Code 40 - 135 U/L AO ADM SS ALT With P-5'-P [Catalytic activity/Vol] 23 U/L Invalid Interpretation Code 16 - 63 U/L AO ADM SS AST With P-5'-P [Catalytic activity/Vol] 13 U/L Invalid Interpretation Code 10 - 40 U/L AO ADM SS Bilirubin [Mass/Vol] 0.2 mg/dL Invalid Interpretation Code 0.2 - 1.0 mg/dL AO ADM SS Calcium [Mass/Vol] 8.4 mg/dL Invalid Interpretation Code 8.4 - 10.2 mg/dL AO ADM SS Chloride [Moles/Vol] 106 mmol/L Invalid Interpretation Code 98 - 107 mmol/L AO ADM SS Cholesterol [Mass/Vol] 116 mg/dL Invalid Interpretation Code 0 - 200 mg/dL AO ADM SS Cholesterol in HDL [Mass/Vol] 45 mg/dL Invalid Interpretation Code 40 - 60 mg/dL AO ADM SS Cholesterol in LDL [Mass/Vol] 64 mg/dL Invalid Interpretation Code 0 - 130 mg/dL AO ADM SS CO2 [Moles/Vol] 29 mmol/L Invalid Interpretation Code 22 - 29 mmol/L AO ADM SS Creatinine [Mass/Vol] 1.11 mg/dL Invalid Interpretation Code 0.70 - 1.30 mg/dL AO ADM SS Electrolyte Balance 5.0 mEq/L Invalid Interpretation Code 4.0 - 15.0 mEq/L AO ADM SS Globulin 3.1 G/dL Invalid Interpretation Code AO ADM SS Glucose [Mass/Vol] 94 mg/dL Invalid Interpretation Code 70 - 105 mg/dL AO ADM SS Potassium [Moles/Vol] 5.6 mmol/L Invalid Interpretation Code 3.5 - 5.1 mmol/L AO ADM SS Protein [Mass/Vol] 6.7 G/dL Invalid Interpretation Code 6.4 - 8.2 G/dL AO ADM SS Sodium [Moles/Vol] 140 mmol/L Invalid Interpretation Code 136 - 145 mmol/L AO ADM SS Triglyceride [Mass/Vol] 36 mg/dL Invalid Interpretation Code 0 - 150 mg/dL AO ADM SS TSH Qn 1.81 m[IU]/L Invalid Interpretation Code 0.36 - 3.74 mcIU/mL AO ADM SS Urea nitrogen [Mass/Vol] 14 mg/dL Invalid Interpretation Code 7 - 18 mg/dL AO ADM SS Urea nitrogen/Creatinine [Mass ratio] 13 ratio Invalid Interpretation Code 7 - 27 ratio AO ADM SS LABORATORYOrdered By: Shae Diaz on 06-09-2021 Albumin BCP dye [Mass/Vol] 4.4 G/dL Invalid Interpretation Code 3.5 - 5.0 G/dL AO ADM SS Albumin/Globulin [Mass ratio] 1.4 {ratio} Invalid Interpretation Code 1.1 - 2.5 ratio AO ADM SS ALP [Catalytic activity/Vol] 88 U/L Invalid Interpretation Code 40 - 135 U/L AO ADM SS ALT With P-5'-P [Catalytic activity/Vol] 26 U/L Invalid Interpretation Code 16 - 63 U/L AO ADM SS AST With P-5'-P [Catalytic activity/Vol] 14 U/L Invalid Interpretation Code 10 - 40 U/L AO ADM SS Bilirubin [Mass/Vol] 0.7 mg/dL Invalid Interpretation Code 0.2 - 1.0 mg/dL AO ADM SS Calcium [Mass/Vol] 8.9 mg/dL Invalid Interpretation Code 8.4 - 10.2 mg/dL AO ADM SS Chloride [Moles/Vol] 103 mmol/L Invalid Interpretation Code 98 - 107 mmol/L AO ADM SS Cholesterol [Mass/Vol] 157 mg/dL Invalid Interpretation Code 0 - 200 mg/dL AO ADM SS Cholesterol in HDL [Mass/Vol] 52 mg/dL Invalid Interpretation Code 40 - 60 mg/dL AO ADM SS Cholesterol in LDL [Mass/Vol] 97 mg/dL Invalid Interpretation Code 0 - 130 mg/dL AO ADM SS CO2 [Moles/Vol] 30 mmol/L Invalid Interpretation Code 22 - 29 mmol/L AO ADM SS Creatinine [Mass/Vol] 1.20 mg/dL Invalid Interpretation Code 0.70 - 1.30 mg/dL AO ADM SS Electrolyte Balance 10.0 mEq/L Invalid Interpretation Code AO ADM SS Globulin 3.1 G/dL Invalid Interpretation Code AO ADM SS Glucose [Mass/Vol] 81 mg/dL Invalid Interpretation Code 70 - 105 mg/dL AO ADM SS Potassium [Moles/Vol] 4.7 mmol/L Invalid Interpretation Code 3.5 - 5.1 mmol/L AO ADM SS Protein [Mass/Vol] 7.5 G/dL Invalid Interpretation Code 6.4 - 8.2 G/dL AO ADM SS Sodium [Moles/Vol] 143 mmol/L Invalid Interpretation Code 136 - 145 mmol/L AO ADM SS Triglyceride [Mass/Vol] 42 mg/dL Invalid Interpretation Code 0 - 150 mg/dL AO ADM SS Urea nitrogen [Mass/Vol] 15 mg/dL Invalid Interpretation Code 7 - 18 mg/dL AO ADM SS Urea nitrogen/Creatinine [Mass ratio] 12 ratio Invalid Interpretation Code 7 - 27 ratio AO ADM SS LABORATORYOrdered By: SYSTEM SYSTEM on 06-09-2021 GFR 80 ml/min/1.73sqm Invalid Interpretation Code AO Chemistry S GFR Non- 66 ml/min/1.73sqm Inval id Interpretation Code AO Chemistry S Vital Signs Date Time Vital Sign Value Performing Clinician Rowena lange 07-24-2022 06:32-0500 Body height 170.2 cm ADALBERTO MUSTAFA DO [facility] 07-24-2022 06:32-0500 Body temperature 99.14 [degF] ADALBERTO MUSTAFA DO [facility] 07-24-2022 06:32-0500 Body weight 118.2 kg ADALBERTO MUSTAFA DO [facility] 07-24-2022 06:32-0500 Diastolic Blood Pressure Non-Invasive 82 1 ADALBERTO MUSTAFA DO [facility] 07-24-2022 06:32-0500 Heart rate 88 /min ADALBERTO MUSTAFA DO [facility] 07-24-2022 06:32-0500 Respiratory rate 18 /min ADALBERTO MUSTAFA DO [facility] 07-24-2022 06:32-0500 Systolic Blood Pressure Non-Invasive 127 1 ADALBERTO MUSTAFA DO [facility] Encounters Encounter Date Encounter Type Care Provider Facility Start: 02-14-2025 ambulatory Naman Chi Adalid OLS Facili ty:[facility] Start: 01-24-2025 End: 02-03-2025 Discharged Recurring Naman Cordoba MD -[facility] Start: 01-24-2025 End: 02-03-2025 ambulatory Katiana Sabillon [employer] INSPECTOR[employer] Work Phone: -Employee [facility] Start: 01-04-2025 Registered [facility] Start: 01-04-2025 ambulatory Health Risk Assessment Facility:[facility] Start: 08-14-2024 ambulatory Naman Chi Adalid OLS Facili ty:[facility] Start: 08-09-2024 End: 08-09-2024 ambulatory Katiana Sabillon NP Facility:[facility] Start: 07-30-2024 End: 08-03-2024 ambulatory Naman Chi Adalid OLS Facility:[facility] Start: 06-16-2024 ambulatory Naman Chi Adalid OLS Facili ty:[facility] Start: 05-29-2024 End: 06-05-2024 ambulatory Naman Chi Adalid OLS Facility:[facility] Start: 05-16-2024 ambulatory Naman Chi Adalid OLS Facili ty:[facility] Start: 04-26-2024 End: 05-05-2024 ambulatory Naman Chi Adalid OLS Facility:[facility] Start: 04-19-2024 End: 04-19-2024 ambulatory Dat PIEDRA Facility:[facility] Start: 04-16-2024 ambulatory Naman Chi Adalid OLS Facili ty:[facility] Start: 04-12-2024 End: 04-12-2024 Emergency department patient visit Katiana Sabillon NP Facility:[facility] Start: 03-22-2024 End: 04-05-2024 [facility] Start: 03-16-2024 End: 04-05-2024 ambulatory Naman [facility] Adalid OLS Facility:[facility] Start: 03-05-2024 End: 03-05-2024 ambulatory [facility] Adalid OLS Facility:[facility] Start: 06-30-2023 End: 06-30-2023 ambulatory Facility:[facility] Start: 06-17-2023 End: 06-18-2023 ambulatory ROXANN SEFFENS DIRECTOR TRAFFIC AND PLANNING-[employer]IPMENT INSTALLER Facility:[facility] Start: 11-26-2022 End: 11-27-2022 ambulatory ROXANN SEFFENS DIRECTOR [employer]FF[employer] AND [employer]ANNING-[employer]IPMENT INSTALLER Facility:[facility] Start: 11-26-2022 End: 11-26-2022 Patient encounter procedure ROXANN SEFFENS DIRECTOR TRAFFIC AND PLANNING-[employer] EQUIPMENT INSTALLER [facility] Start: 07-24-2022 End: 07-24-2022 Emergency department patient visit ROXANN SEFFENS DIRECTOR TRAFFIC AND PLANNING-[employer] EQUIPMENT INSTALLER Facility:[facility] Start: 07-24-2022 End: 07-24-2022 Emergency department patient visit ADALBERTO MUSTAFA DO [facility] Start: 02-18-2022 End: 02-18-2022 Patient encounter procedure ROXANN SEFFENS DIRECTOR TRAFFIC AND PLANNING-[employer] EQUIPMENT INSTALLER [facility] Start: 02-05-2022 End: 02-05-2022 Patient encounter procedure ROXANN SEFFENS DIRECTOR TRAFFIC AND PLANNING-[employer] EQUIPMENT INSTALLER [facility] Start: 01-29-2022 End: 01-29-2022 Patient encounter procedure ROXANN SEFFENS DIRECTOR TRAFFIC AND PLANNING-[employer] EQUIPMENT INSTALLER [facility] Start: 06-09-2021 End: 06-09-2021 Patient encounter procedure PAU JOHNSON DIRECTOR TRAFFIC AND PLANNING-[employer] EQUIPMENT INSTALLER [facility] Procedures Date Procedure Procedure Detail Performing Clinician Start: 01-24-2025 Viral antigen assay Kandy horner Jacinad B[employer]BALL INSPECTOR-C Work Phone: Start: 01-04-2025 Serum inorganic phos phate measurement Katiana Jacinda B[employer]BALL INSPECTOR-C Work Phone: Start: 01-04-2025 Urnls dip stick/tabl et reagent auto microscopy Katiana Sabillon B[employer]BALL INSPECTOR-C Work Phone: Start: 07-23-2022 Colonoscopy ADALBERTO FRIAS DO None (qualifier value) MABLE MÁRQUEZ ELIZABETH DIRECTOR TRAFFIC AND PLANNING-[employer] EQUIPMENT INSTALLER Immunizations Immunization Date Immunization Notes Care Provider Fa cili 02-12-2022 tetanus toxoid, redu vinay diphtheria toxoid, and acellular pertussis vaccine, adsorbed; Translations: [Boostrix (Tdap)] ROXANN ALAMO DIRECTOR TRAFFIC AND PLANNING-RAD[employer] EQUIPMENT INSTALLER [facility] 06-06-2008 tetanus toxoid, redu vinay diphtheria toxoid, and acellular pertussis vaccine, adsorbed ROXANN ALAMO DIRECTOR TRAFFIC AND PLANNING-RADIO EQUIPMENT INSTALLER [facility] 10-19-2000 typhoid vaccine, karo e, oral ROXANN ALAMO DIRECTOR TRAFFIC AND PLANNING-RADIO EQUIPMENT INSTALLER [facility] Payers Date Payer Category Payer Unknown [id number] 2024 Unknown [id number] 2024 Self-pay 2022 Private Health Insurance [id number] 2022 Unknown [id number] 1977 Unknown [id number] 2.16.8 [id number] 1977 Unknown [id number] 07.22. [id number] 1977 Unknown [id number] 2..8 [id number] Unknown [id number] Unknown [id number] 2..8 [id number] Unknown [id number] 2..8 [id number] Unknown [id number] 2..8 [id number] Unknown [id number] 2..8 [id number] Unknown [id number] 2..8 [id number] Unknown [id number] 2..8 [id number] Unknown [id number] 2.16.8 [id number] Unknown [id number] 2.16.8 [id number] Unknown [id number] 2.16.8 [id number] Unknown [id number] 2.16.8 [id number] Unknown [id number] 2.16.8 [id number] Unknown [id number] 2.16.8 [id number] Unknown [id number] 2.16.8 [id number] Unknown [id number] 2.16.8 [id number] Unknown [id number] 2.16.8 [id number] Unknown [id number] 2.16.8 [id number] Social History Date Type Detail Facility Start: 05-14-2020 End: 04-19-2024 Never smoked tobacco (finding) [facility] Assigned At [facility] Start: 1975 Sex Assigned At Male [facility] Functional Status Date Assessment Result Facility 07-24-2022 Functional Status Independent [facility] 07-24-2022 Functional Status Room check performed [facility] Mental Status Date Assessment Result Facility 07-24-2022 Mental Status Orientation Oriented x 4 [facility] 07-24-2022 Mental Status [facility] Clinical Notes 07-24-2022 to 06-30-2023 Laboratory Note Date & Type Note Facility 06-30-2023 Note HNO ID: [id number] Author: LINNEA VAZQUEZ APRN.[employer]MENT INSTALLER Service: ? Author Type: Nurse Practitioner Type: Progress Notes Filed: 06/30/2023 09:54 Note Text: Subjective HPI HPI Rashad Matos is a 48 year old male who presents today for CC of cough, sinus pressure, ear pressure. This started over 1 week ago. Has tried otc medication for relief. Symptoms are worsened by nothing. Risk factors sick exposures at work. Nonsmoker. Gets sinus infections few times per year. .Patient presents with: Sinus Problem: Sinus pain and pressure, cough x1 week PAST MEDICAL HISTORY Diagnosis Date Depression GERD (gastroesophageal reflux disease) PAST SURGICAL HISTORY Procedure Laterality Date PAST SURGICAL HISTORY OF closed reduction left arm ALLERGIES Benzoyl Peroxide and Seasonal Allergies MEDICATIONS cholecalciferol (VITAMIN D-3) 5,000 unit tab Take 5,000 Units by mouth once daily. citalopram (CELEXA) 40 mg tablet Take 30 mg by mouth once daily. multivitamin tablet Take 1 tablet by mouth once daily. amoxicillin-clavulanate potassium (AUGMENTIN) 875-125 mg per tablet Take 1 tablet by mouth two times a day for 7 days. predniSONE (DELTASONE) 20 mg tablet Take 2 tablets by mouth once daily for 5 days. benzonatate (TESSALON PERLE) 100 mg capsule Take 2 capsules by mouth three times a day as needed. famotidine (PEPCID ORAL) Take by mouth. guaiFENesin (MUCINEX) 600 mg 12 hr tablet Take 2 tablets by mouth twice daily. benzonatate (TESSALON PERLES) 100 mg capsule Take 1 capsule by mouth three times daily as needed. OMEPRAZOLE (PRILOSEC ORAL) Take 20 mg by mouth once daily. CITALOPRAM HYDROBROMIDE (CELEXA ORAL) Take 40 mg by mouth once daily. (Patient not taking: Reported on 06/30/2023) FLUTICASONE PROPIONATE (FLONASE NASAL) Use in the nose. FAMILY HISTORY Problem Relation Age of Onset Cancer Father bladder Hypertension Father Social History Tobacco Use Smoking status: Never Smokeless tobacco: Never Substance Use Topics Alcohol use: Not Currently Drug use: Never Review of Systems Constitutional: Negative for fever. HENT: Positive for congestion, ear pain, sinus pain and sore throat. Negative for ear discharge and nosebleeds. Respiratory: Positive for cough. Negative for shortness of breath and wheezing. Cardiovascular: Negative for chest pain. Musculoskeletal: Negative for neck pain. Skin: Negative for itching and rash. Objective Physical Exam Constitutional: General: He is not in acute distress. Appearance: He is not toxic-appearing or diaphoretic. HENT: Head: Normocephalic and atraumatic. Right Ear: Hearing, tympanic membrane, ear canal and external ear normal. Left Ear: Hearing, tympanic membrane, ear canal and external ear normal. Nose: Right Sinus: Frontal sinus tenderness present. Left Sinus: Frontal sinus tenderness present. Mouth/Throat: Pharynx: Uvula midline. No pharyngeal swelling, oropharyngeal exudate, posterior oropharyngeal erythema or uvula swelling. Eyes: General: Lids are normal. No scleral icterus. Right eye: No discharge. Left eye: No discharge. Conjunctiva/sclera: Conjunctivae normal. Pupils: Pupils are equal, round, and reactive to light. Neck: Trachea: Trachea normal. Cardiovascular: Rate and Rhythm: Normal rate and regular rhythm. Heart sounds: Normal heart sounds. Pulmonary: Effort: Pulmonary effort is normal. Breath sounds: Normal breath sounds. Musculoskeletal: Cervical back: Normal range of motion and neck supple. Lymphadenopathy: Cervical: No cervical adenopathy. Right cervical: No superficial cervical adenopathy. Left cervical: No superficial cervical adenopathy. Skin: Findings: No rash. Neurological: Mental Status: He is alert and oriented to person, place, and time. ASSESSMENT/PLAN: 1. Sinobronchitis - ICD9: 473.9, 490, ICD10: J32.9, J40 - Will begin treatment with as per antibiotic as written, see orders - Supportive care with plenty of fluids, rest, and analgesia prn. - Follow up in 3-5 days if symptoms persist or worsen. -If you experience chest pain/shortness of breath go to ER - AMOXICILLIN 875 MG-POTASSIUM CLAVULANATE 125 MG TABLET - PREDNISONE 20 MG TABLET - BENZONATATE 100 MG CAPSULE Linnea Vazquez APRN.[facility] 07-24-2022 Hospital Discharge instructions Patient Education 07/24/2022 09:06:25 Lower GI Bleeding (Stable) Lower Gastrointestinal (GI) Bleeding (Stable) You have signs of blood in your stool. This is called rectal bleeding. The bleeding may have begun in another part of your gastrointestinal (GI) tract. If the blood is bright red, it is likely coming from the lower part of the GI tract. If the blood is black or dark, it might be coming from higher up in the GI tract. Very small amounts of GI bleeding may not be visible and can only be discovered during a test on your stool. Possible causes of lower GI bleeding include: Swollen inflamed veins in the rectum (hemorrhoids) Tear in the lining of the anus (anal fissures) Inflammation of a small pouch in the intestine (diverticulitis) Inflammatory bowel disease (Crohn's disease or ulcerative colitis) Polyps (growths) in the intestine Swelling and irritation of the colon (infectious colitis) Colon cancer Note: Iron supplements and medicines for diarrhea or upset stomach can cause black stools. Foods such as licorice and red beets can also discolor the stool and be mistaken for bleeding. These are not bleeding and are not a cause for alarm. Home care You have not lost a large amount of blood and your condition appears stable at this time. You may resume normal activity as long as you feel well. Don't take NSAIDs, such as aspirin, ibuprofen, or naproxen. They can irritate the stomach and cause further bleeding. If you are taking these medicines for other medical reasons, talk to your healthcare provider before you stop them. Follow-up care Follow up with your healthcare provider, or as advised. Further tests may be needed to find the cause of your bleeding. When to seek medical advice Call your healthcare provider right away for any of the following: Large amount of rectal bleeding Increasing abdominal pain Weakness, dizziness Call 911 Call 911 if any of the following occur: Loss of consciousness Vomiting blood [phone] [employer]. [address] [place] [address]. All rights reserved. This information is not intended as a substitute for professional medical care. Always follow your healthcare professional's instructions. Follow Up Care 07/24/2022 06:24:21 With:SELENA ANAND MD Address: [address] [address] [phone] When:2-4 days [facility] 07-24-2022 Emergency department Discharge summary Discharge Instructions Thank you for allowing [facility] to assist you with your healthcare needs. The following is important discharge information regarding your hospital visit. Diagnosis from Today's Visit GI bleeding What to Do Next Instructions from Your Care Team No qualifying data available. Post Acute Orders No qualifying data available. You Need to Schedule the Following Appointments Follow Up with SELENA ANAND MD When Within 2-4 days Where: [address] [facility] [address] [place] [address]- [phone] Allergies Benzoyl Peroxide (Pain, Redness, Swelling) Medications Please ask your primary doctor or pharmacist before taking any other medication not listed, including over the counter drugs, herbal medications, vitamins and or supplements as they may interact with your home medications. What How Much When Instructions Last Dose Unchanged cholecalciferol (Vitamin D3) 2,000 unit(s) by mouth Every day Unchanged citalopram (citalopram 20 mg oral tablet) 1 tab(s) by mouth Once a day Duration: 90 Days Unchanged multivitamin with minerals (Centrum Men's oral tablet) by mouth Once a day Please take this list to your next doctor s visit. Bring all medications you take, including over the counter medications, herbals and other supplements with you to your doctor s visit. Patients and families are reminded to discard old lists and to update any records with all medication providers or retail pharmacies. Education Materials Lower Gastrointestinal (GI) Bleeding (Stable) You have signs of blood in your stool. This is called rectal bleeding. The bleeding may have begun in another part of your gastrointestinal (GI) tract. If the blood is bright red, it is likely coming from the lower part of the GI tract. If the blood is black or dark, it might be coming from higher up in the GI tract. Very small amounts of GI bleeding may not be visible and can only be discovered during a test on your stool. Possible causes of lower GI bleeding include: Swollen inflamed veins in the rectum (hemorrhoids) Tear in the lining of the anus (anal fissures) Inflammation of a small pouch in the intestine (diverticulitis) Inflammatory bowel disease (Crohn's disease or ulcerative colitis) Polyps (growths) in the intestine Swelling and irritation of the colon (infectious colitis) Colon cancer Note: Iron supplements and medicines for diarrhea or upset stomach can cause black stools. Foods such as licorice and red beets can also discolor the stool and be mistaken for bleeding. These are not bleeding and are not a cause for alarm. Home care You have not lost a large amount of blood and your condition appears stable at this time. You may resume normal activity as long as you feel well. Don't take NSAIDs, such as aspirin, ibuprofen, or naproxen. They can irritate the stomach and cause further bleeding. If you are taking these medicines for other medical reasons, talk to your healthcare provider before you stop them. Follow-up care Follow up with your healthcare provider, or as advised. Further tests may be needed to find the cause of your bleeding. When to seek medical advice Call your healthcare provider right away for any of the following: Large amount of rectal bleeding Increasing abdominal pain Weakness, dizziness Call 911 Call 911 if any of the following occur: Loss of consciousness Vomiting blood [phone] [employer]. [address] [place] [address], [place] [address]. All rights reserved. This information is not intended as a substitute for professional medical care. Always follow your healthcare professional's instructions. Additional Information VACCINATE! IT SAVES LIVES! Members of the community who have not yet received the COVID-19 vaccine and would like to receive it can visit one of [facility] vaccine clinics. There are many vaccine clinic locations within the [facility]. For locations and available times, please visit www.[email or web address].[place]. gov/. It is important to note that some COVID mobile vaccine clinics are held outdoors and may be canceled in rainy or stormy conditions. To learn more about pediatric vaccinations (ages 5-11), we invite you to visit the [facility] webpage. https://www.[facility].org/p ages/4630-Qxeoz-Uqzishiuhpd-Freq tqmwgf-Bwfcj-Viyqncrip.html To learn more about the COVID-19 vaccine, we invite you to visit the CDC website for a list of frequently asked questions. https://www.cdc.gov/coronavirus/ 2019-ncov/vaccines/faq.html [employer] Patient Portal Access Instructions: Stay connected with your healthcare team and access your personal medical information anytime with the [employer] Patient Portal. If you would like a full copy of your medical records please contact the [facility] Medical Records Department Tuesday through Tuesday between 8a.m. and 4:30p.m. Please follow the directions below to access the portal: 1.Access the email account you provided upon registration to the hospital.2.Look for an invitation email from [facility].3.Open the email and access the invitation link: Accept Invitation to [employer].Fill in the required stubbs to create your account. Sign into [email or web address] with your username and password that you created in the above steps to stay up to date. You can then view a summary of results, a summary of your visits, and the ability to download your summaries to your computer or send the information securely to a physician. Remember that your healthcare information is confidential, so carefully consider who you will allow to register on the [employer] Patient Portal for access to your information. You can also access the [employer] Patient Portal on the [employer] bhavin. Simply click on Health Records under Health Data and then click on the [employer] logo. HOW TO SAFELY DISPOSE OF PRESCRIPTION MEDICATIONS Please use one of the following methods to safely dispose of your unused medications. 1.Use a drug disposal kit: the drug disposal pouch allows you to safely discard your old and unused drugs. Ask your nurse to give you one when you are discharged.2.Visit a local take-back location: Many local pharmacies and police departments have programs that collect old and unwanted prescription drugs. Call your local pharmacy or go to http://[employer].Pinguo/3D6Ve7x to find one close to you.3.Make use of household items: Use cat litter or old coffee grounds to dispose medications if other options are not available. Mix your drugs with these household products, seal them in an airtight container and throw it into the garbage. Call [facility]: [phone] to be sure your drugs can be disposed of in this way. Some medicines may require a different approach.4.Never flush your medications down the toilet. IF YOU HAVE BEEN PRESCRIBED AN OPIOIDS FOR PAIN If you have been prescribed an opioid (such as hydrocodone, oxycodone or morphine), it is critical to understand the possible side effects and risks of opioid pain medications. Even when taken as directed, opioids can have several side effects including: Tolerance, meaning you might need to take more of a medication for the same pain relief. Nausea, vomiting and/or constipation. Sleepiness, dizziness, dry mouth, confusion, depression or itching. Physical dependence, meaning you have withdrawal symptoms when a medication is stopped ? this can develop within a few days. KNOW YOUR RESPONSIBILITIES It is important to know exactly how much and how often to take the opioid pain medications you are prescribed. Never take opioids in higher amounts or more often than prescribed. Do not combine opioids with alcohol or other drugs that cause drowsiness, such as benzodiazepines, also known as benzos, including diazepam and alprazolam, muscle relaxants or sleep aids. Never sell or share prescription opioids. This is illegal. Store opioids in a secure place and out of reach of others (including children, family, friends and visitors). The last page(s) of this document has been signed and retained as a CHART COPY Signatures Patient Education Materials Lower GI Bleeding (Stable) Medication Leaflets My discharge plan and instructions have been reviewed and explained to me and I,RASHAD MATOS understand my current condition and have read and understand these discharge instructions. I have received a written copy of the plan/instructions. If I have questions, I am aware that I should contact my doctor. 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 HISTORY: ORDERING SYSTEM PROVIDED HISTORY: Reason for Exam: abdominal pain FINDINGS: Gas is scattered through the small and large intestine. No dilated loops of intestine are present. There is no free intraperitoneal air other abnormal gas collection. No pathologic calcifications are detected. There is no evidence of organomegaly. The skeletal structures are unremarkable. IMPRESSION: No sign of acute abdominal process. Interpreted by: Mack Perez MD Preliminary Report By: Mack Perez MD Electronically signed By Mack Perez MD Dictated Date: 07/24/2022 7:48:36 AM Prelim Date: 07/24/2022 7:49:41 AM Sign Date: 07/24/2022 7:49:41 AM Ordering Provider: ADALBERTO [facility] 07-24-2022 Note ORIGINAL EXAMINATION: THREE XRAY VIEWS OF THE ABDOMEN 07/24/2022 7:46 am COMPARISON: None. HISTORY: ORDERING SYSTEM PROVIDED HISTORY: Reason for Exam: abdominal pain FINDINGS: Gas is scattered through the small and large intestine. No dilated loops of intestine are present. There is no free intraperitoneal air other abnormal gas collection. No pathologic calcifications are detected. There is no evidence of organomegaly. The skeletal structures are unremarkable. IMPRESSION: No sign of acute abdominal process. Interpreted by: Mack Perez MD Preliminary Report By: Mack Perez MD Electronically signed By Mack Perez MD Dictated Date: 07/24/2022 7:48:36 AM Prelim Date: 07/24/2022 7:49:41 AM Sign Date: 07/24/2022 7:49:41 AM [facility] + Plan note Future Appointments Appointment Date:06/15/2021 09:00:00 AM Scheduled Provider:PAU JOHNSON Location:[facility] Appointment Type:PC Wellness Annual [facility] Evaluation + Plan note Future Appointments Appointment Date:02/12/2022 10:30:00 AM Scheduled Provider:ROXANN ALAMO Location:[facility] Appointment Type: Wellness Annual [facility] Evaluation + Plan note Future Appointments Appointment Date:01/21/2023 11:00:00 AM Scheduled Provider:ROXANN ALAMO Location:[facility] Appointment Type: Wellness Annual w/Labs Future Scheduled TestsThyroid Stimulating Hormone 01/13/23Lipid Profile 01/13/23Vitamin D Level 01/13/23Complete Metabolic Panel 01/13/23 [facility] Evaluation + Plan note Future Appointments Appointment Date:12/13/2022 10:30:00 AM Scheduled Provider:ROXANN ALAMO Location:[facility] Appointment Type: Wellness Annual w/Labs [facility] Evaluation note No assessment inform ation available [facility] Work Phone: Hospital course Narrative No data available for this section [facility] Hospital Discharge instructions No data available for this section [facility] Progress note No data available for this section [facility] Reason for referral (narrative) No reason for referral information available [facility] Work Phone: Summary Purpose Family History No Family History Records FoundNo Family History Records FoundNo Family History Records Found Advance Directives No Advanced Directives Records FoundNo Advanced Directives Records FoundNo Advanced Directives Records Found Chief Complaint and Reason for Visit Chief Complaint Admit Date [employer] January 04, 2025 7:2 5am Additional Source Comments Care Team (unrecognized sect ion and content) Care Team Personnel Name: PAU JOHNSON APRN-MARIA ESTHER Position: P4 Advanced Practice Nurse Member Role: Primary Care Physician Address: Address: [address] [place] [address]- Care Team Related Persons Name: NONE, NONE Care Team Personnel Name: PAU JOHNSON APRN-RADIO EQUIPMENT INSTALLER Position: P4 Advanced Practice Nurse Member Role: Primary Care Physician Address: Address: [address] [place] [address]- Care Team Related Persons Name: NONE, NONE Care Team Personnel Name: ROXANN ALAMO Position: P4 Advanced Practice Nurse Med Service: Active Provider Member Role: Primary Care Physician Address: Address: [address] [place] [id number]- [place] Care Team Related Persons Name: NOEMI MATOS Care Team Personnel Name: ROXANN ALAMO Position: P4 Advanced Practice Nurse Member Role: Primary Care Physician Address: Address: [address] [place] [address]- Name: ADALBERTO MUSTAFA DO Position: ED Physician Member Role: Attending Physician Address: Address: [facility] [address] [place] [address]- Care Team Related Persons Name: NOEMI MATOS Patient Care team informatio n (unrecognized section and content) Team Status: Active Member Role/Relationship Status Dates Katiana Sabillon NP, BASEBALL INSPECTOR-C Primary Care Provider Activ e Team Status: Active Member Role/Relationship Status Dates Katiana Sabillon NP, BASEBALL INSPECTOR-C Primary Care Provider Activ e Start: January 04, 2025 Health Risk Assessment Attending Provider Active Start: January 04, 2025 Health Risk Assessment Referring Provider Active Start: January 04, 2025 Team Status: Inactive Member Role/Relationship Status Dates Katiana Sabillon NP, BASEBALL INSPECTOR-C Primary Care Provider Activ e Start: January 24, 2025 End: February 03, 2025 Naman FUNEZ MD Attending Provider Active S tart: January 24, 2025 End: February 03, 2025 (unrecognized sect ion and content) No Status Records FoundNo Status Records FoundNo Status Records Found INFORMATION SOURCE (unrecogn ized section and content) DATE CREATED AUTHOR 06/19/2023 [facility] ([place]) DATE CREATED AUTHOR AUTHOR'S ORGANIZ ATION 07/01/2023 [facility] DATE CREATED AUTHOR AUTHOR'S ORGANIZ ATION 02/04/2025 [facility] Goals (unrecognized section and content) Goals may be documented in a n alternate section FOR RECORDS PERTAINING TO PATIENTS WHO ARE OR HAVE BEEN ENROLLED IN A CHEMICAL DEPENDENCY/SUBSTANCEABUSE PROGRAM, SOME INFORMATION MAY BE OMITTED. This clinical summary was aggregated from multiple sources. Caution should be exercised in using it in the provision of clinical care. This summary normalizes information from multiple sources, and as a consequence, information in this document may materially change the coding, format and clinical context of patient data. In addition, data may be omitted in some cases. CLINICAL DECISIONS SHOULD BE BASED ON THE PRIMARY CLINICAL RECORDS. [employer] provides no warranty or guarantee of the accuracy or completeness of information in this document.
[2025-02-11 09:19] LABS: PSA,Total - Annual Screen 0.46 ng/mL (0.02-4.00)
== END | disposition home or self-care (01) ==
LOC: LAB 07:28
PROVIDERS: PCP Registered Nurse; Referring Provider Registered Nurse; Visit Provider Registered Nurse
DX: Z12.5 Encounter for screening for malignant neoplasm of prostate (principal)
CPT/HCPCS: 36415; 84153; G0103